=== PATIENT | male | born 1990 | race Caucasian/White ===

== ENCOUNTER 2017-05-13 16:28 | Outpatient (RCR) | payer OTHER, SELFPAY ==
--- NOTE | 2017-05-20 16:23 | HP.PTEVAL_ITS ---
Patient's Visit Information JOSE HARRIS is a 26 year old M referred to Physical Therapy by ADOLFO Burgos NP.MYODE with a diagnosis of Low back pain. Date of Evaluation: 05/13/17 Physical Therapist: Alexis Pulido - Visit Plan Frequency: 2x /Week Duration: 4 Weeks Plan: Start with lumbar extension progress to increase ROM, Add in neutral spine core strengthening. Pt. desires to trial on his own currently and follow up with in 2-3 weeks if not progressing. I gave him extension progress and neutral spine core strengthening for HEP. - Subjective Subjective: Pt. is here today for his initial evaluation with diagnosis of low back pain. Pt. reports having a history of low back pain on and off for 5-6 years. This episode was caused by lifting his nephew up from the ground resulting in intense pain ultimately having trouble walking. Pt. reports feeling much better now and reports no N/T in either LE or lumbar spine. Pt. reports no LE weakness. Pt. is back light exercises and work activities without issues, but does reports some tightness oin his low back with exercises. Pt. denies changes in B/B. Pt. is hopeful to get some exercises for core stability and stretching to reduce risk of back pain returning. Pt. would like to get back to all gym strengthening exercises without limitations. - Pain Lumbar spine Pain Intensity (Out of 10): 0 Pain Intensity Range: 0, 4 - Objective POSTURE: Pt. has normal posture in stance, he has slight anterior tilt of his pelvic bilaterally. Pt. has equal wt. shift in stance and no lateral shifting. PALPATION: Pt. has mild tenderness at R sided lumbar erector spine with slight increase in muscle tenion R to L. pt. has no pain at SI bilaterally, no pain with spring testing, no hypombility noted. NEUROLOGICAL: Pt. has normal sensation to light and sharp touch throughout bilateral LEs. Pt. has 2+ achilles and patellar DTR bilaterally. Pt. is able to rise on heels and toes without issues. ROM: LUMBAR SPINE: flexion nil loss- tightness noted in HS and lumbar spine, ext min loss stiffness noted, SB bilaterally nil loss NE, rotation bilaterally nil loss NE. Pt. has tight HS bilaterally, but otherwise normal ROM without pain. MMT: RLE- ankle 5/5 throughout; knee- 5/5 throughout; hip- flexion 4+/5, abd 4+/5, ext 4+/5, add 5/5. LLE- ankle/knee 5/5 throughout ; hip- flexion 4+/5, abd 4+/5, ext 4+/5, add 5/5. Core- fair. Pt. has difficulty maintaining good TA contraction. GAIT: Normal gait pattern without issues. Normal squat pattern. STAIRS- reciprocal no pain no HR. - Special Tests L/S Slump test left side: Negative L/S Slump test right side: Positive L/S Left Straight Leg Raise: Negative L/S Right Straight Leg Raise: Positive L/S Spinal Stenosis - 2 Stage Treadmill Test: Negative L/S Degenerative Changes - Quadrant Test: Negative L/S Compression Fracture - Supine Test: Negative Lumbar Standing: Flexion - Mechanical Response: No effect Lumbar Standing: Flexion - Symptoms During Testing: No effect Lumbar Standing: Flexion - Symptoms After Testing: No effect Lumbar Standing: Extension - Mechanical Response: No effect Lumbar Standing: Extension - Symptoms During Testing: No effect Lumbar Standing: Extension - Symptoms After Testing: No effect Comments:: stiff with extension Lumbar Standing: Right Side Glides - Mechanical Response: No effect Lumbar Standing: Right Side [facility] - Symptoms During Testing: No effect Lumbar Standing: Right Side [facility] - Symptoms After Testing: No effect Lumbar Standing: Left Side [facility] - Mechanical Response: No effect Lumbar Standing: Left Side [facility] - Symptoms During Testing: No effect Lumbar Standing: Left Side [facility] - Symptoms After Testing: No effect - Goals Goal 1:: Pt. to be I with HEP. Goal Time Frame: 2-4 Weeks Goal 2:: Pt. to have increased core strength and bilateral hip strength by 1/2 grade of all effected musculature to reduce stress applied to lumbar spine. Goal Time Frame: 4-6 Weeks Goal 3:: Pt. have increased lumbar ext ROM without increase in symptoms. Goal Time Frame: 2-4 Weeks Goal 4:: Pt. to resume all work and gym activities without increase in symptoms. Goal Time Frame: 4-6 Weeks - Rehabilitation Potential Physical Therapy Diagnosis: Pt. has signs and symptoms consistent with low back pain, most likely from disc bulging on R side. Pt. has had significant improvement in symptoms over the past few weeks. He does have some pain with slump testing and has stiffness with lumbar ext. Pt. would benefit from lumbar ext progression, progessing to core stability exercises in order to reduce stress on lumbar spine with all functional mobility. Rehabilitation Potential: Excellent - Anticipated Interventions Patient/Client Instruction: Educate patient on: Condition, Plan of Care, Risk Factors, Benefits of Fitness Program For the Purpose of:: To improve health and function, To foster healthy habits, To improve decision making, To facilitate caregiver knowledge, To improve self management, To prevent re-injury, To improve ability to perform tasks related to life management, To improve tolerance to ADL's Therapeutic Exercise to Include: Strength training, Power training, Endurance training, Postural training, Flexibilty training, Passive ROM, Active ROM, Dynamic Lumbar Stabilization, Markie Exercises For the Purpose of:: To decrease pain, To improve nutrient delivery to tissue, To increase oxygenation perfusion, To improve muscle performance and motor function, To improve ability to perform ADL's, To increase tolerance to activity /condition/position, To decrease level of supervision to perform tasks, To decrease soft tissue restriction, To increase flexibility/ROM Manual Therapy Techniques to Include: Petrissage, Trigger point massage, Mobilization, Passive ROM, Soft tissue mobilization For the Purpose of:: To decrease pain, To decrease swelling/inflammation, To increase ROM Thank you for the opportunity to evaluate your patient. For Medicare and Medicare HMO plans, please review the plan of care and approve it. It will need to be FAXED BACK to us at [phone] for Medicare purposes. Please let me know if there are questions or concerns regarding this plan of care. Physician Signature: Date:
--- NOTE | 2017-11-04 17:52 | HP.PTDCNRP_ITS ---
HP - Discharge Summary (1) - Patient Information JOSE HARRIS was seen in my office for initial evaluation on 05/13/17. The following Plan of Care was established for this patient: Initial Frequency: 2x /Week Initial Duration: 4 Weeks - Anticipated Interventions Patient/Client Instruction: Educate patient on: Condition, Plan of Care, Risk Factors, Benefits of Fitness Program For the Purpose of:: To improve health and function, To foster healthy habits, To improve decision making, To facilitate caregiver knowledge, To improve self management, To prevent re-injury, To improve ability to perform tasks related to life management, To improve tolerance to ADL's Therapeutic Exercise to Include: Strength training, Power training, Endurance training, Postural training, Flexibilty training, Passive ROM, Active ROM, Dynamic Lumbar Stabilization, Markie Exercises For the Purpose of:: To decrease pain, To improve nutrient delivery to tissue, To increase oxygenation perfusion, To improve muscle performance and motor function, To improve ability to perform ADL's, To increase tolerance to activity /condition/position, To decrease level of supervision to perform tasks, To decrease soft tissue restriction, To increase flexibility/ROM Manual Therapy Techniques to Include: Petrissage, Trigger point massage, Mobilization, Passive ROM, Soft tissue mobilization For the Purpose of:: To decrease pain, To decrease swelling/inflammation, To increase ROM This patient was last seen in our office 05/13/17. Pertinent comments regarding their Physical therapy will appear below: Pt. was seen for his initial evaluation with diagnosis of low back pain. Pt. was seen for his initial evaluation and was to trial exercises on his own. Pt. was to follow back up with PT if needed. Pt. has not been seenin ~6 months and will be DC from PT at this point in time. At this point I will be discontinuing this patient from physical therapy. I would be happy to see this patient again in the future if found appropriate by the physician. Thank you! Alexis Pulido
== END 2017-05-13 19:00 | disposition home or self-care (01) ==
LOC: PT 16:28
PROVIDERS: Family Provider Internal Medicine; PCP Internal Medicine; Visit Provider Nurse Practitioner Family
DX: M54.9 Dorsalgia, unspecified (principal); G89.29 Other chronic pain
CPT/HCPCS: 97110; 97162

== ENCOUNTER → 2017-06-30 13:40 | Outpatient (CLI) | payer OTHER, SELFPAY ==
--- NOTE | 2017-06-30 13:43 | RAD_ITS ---
STUDY: X-RAY - LUMBOSACRAL SPINE REASON FOR EXAM: Male, 26 years old. Low back pain TECHNIQUE: 7 view(s) of the lumbosacral spine were obtained. COMPARISON: None FINDINGS: Normal lumbar lordosis. There is no substantial scoliosis. There is normal alignment of the vertebrae. There is a unilateral right L5 spondylolysis with no associated spondylolisthesis. There is moderate narrowing of the L3-4 and L4-5 disc spaces. Normal visualized soft tissue structures. RAD/L/S Spine Comp/w Bending Views IMPRESSION: 1. Unilateral right L5 spondylolysis with no associated spondylolisthesis. 2. Moderate narrowing of the L3-4 and L4-5 disc spaces. Electronically Signed: Geronimo Alexander MD at 22:04 EDT , Service support ,
== END ==
PROVIDERS: Family Provider Internal Medicine; PCP Internal Medicine; Visit Provider Orthopaedic Surgery
DX: M47.896 Other spondylosis, lumbar region (principal); M48.061 Spinal stenosis, lumbar region without neurogenic claudication
CPT/HCPCS: 72114

== ENCOUNTER → 2017-07-09 08:19 | Outpatient (CLI) | payer OTHER, SELFPAY ==
[2017-07-09 10:17] LABS: Hemoglobin A1c 5.4 % (4.2-6.3)
[2017-07-09 10:19] LABS: Cholesterol 179 mg/dL (200); High Density Lipoprotein 37 mg/dL; Triglycerides 162 mg/dL; Very Low Density Lipoprotein 32 mg/dL (5-40)
[2017-07-10 11:51] LABS: Vitamin D,25 Hydroxy 44.7 ng/mL (29.95-100.01)
== END ==
PROVIDERS: Family Provider Internal Medicine; PCP Internal Medicine; Visit Provider Internal Medicine
DX: R73.9 Hyperglycemia, unspecified (principal); E78.1 Pure hyperglyceridemia; R53.83 Other fatigue
CPT/HCPCS: 36415; 80061; 82306; 83036

== ENCOUNTER → 2017-10-12 16:21 | Outpatient (CLI) | payer OTHER, SELFPAY ==
[2017-10-12 18:45] LABS: HIV - WCH Non-Reactive (Nonreactive)
[2017-10-12 20:14] LABS: Chlamydia Trachomatis by PCR Negative (Negative); Neisserai gonorrhoeae by PCR Negative (Negative); Probe Check PASS; Sample Adequacy Control PASS; Specimen Processing Control PASS
[2017-10-14 20:12] LABS: HCV Quant. RNA PCR HCV Not Detected IU/mL (.)
[2017-10-16 02:41] LABS: Rapid Plasmin Reagin (RPR) NONREACTIVE (NONREACTIVE)
== END ==
PROVIDERS: Family Provider Internal Medicine; PCP Internal Medicine; Visit Provider Internal Medicine
DX: Z11.3 Encounter for screening for infections with a predominantly sexual mode of transmission (principal)
CPT/HCPCS: 36415; 86592; 86703; 87491; 87522; 87591

== ENCOUNTER → 2019-05-17 08:25 | Outpatient (CLI) | payer OTHER, SELFPAY ==
[2019-05-10 14:11] VITALS: BMI 30.1
[2019-05-17 13:06] LABS: Absolute Lymphocyte Count 2.57 X10^3/uL (0.83-4.51); Absolute Neutrophil Count 2.8 X10^3/uL (2.0-7.7); Basophil# 0.04 X10^3/uL; Basophil% 0.7 % (0-1); Eosinophil# 0.08 X10^3/uL; Eosinophils% 1.3 % (0-5); Hemoglobin 14.5 g/dL (13.0-16.5); Lymphocyte # 2.57 X10^3/ul (4.0); Lymphocyte % 42.1 % (19-41); Mean Corp Hgb Conc 33.7 g/dL (32-36); Mean Corpuscular Hgb 30.4 pg (27.0-32.0); Mean Corpuscular Volume 90.1 fL (80-94); Mean Platelet Vol. 10.9 fl (6.2-12.0); Monocyte# 0.55 X10^3/uL; NRBC Flagged by Analyzer 0 % (0-5); Neutrophil # 2.83 X10^3/uL (2.7-7.7); Neutrophil % 46.4 % (47-70); Platelet Count 303 K/mm3 (150-450); RBC Distribution Width CV 12.1 % (11.6-14.6); RBC Distribution Width SD 39.9 fl (35.1-43.9); Red Blood Count 4.77 M/mm3 (4.6-6.2); White Blood Count 6.1 K/mm3 (4.4-11.0)
[2019-05-17 13:12] LABS: ALB/GLOB Ratio 1.3 RATIO (0.9-2.4); AST(SGOT) 21 U/L (15-37); Alanine Aminotransfer ALT/SGPT 50 U/L (16-61); Albumin, Serum 4.3 g/dL (3.2-5.0); Alkaline Phosphatase 59 U/L (45-117); Anion Gap 7 (5-15); BUN 22 mg/dL (7-18); BUN/Creat Ratio 20.2 RATIO (10-20); Calcium,Total 9.2 mg/dL (8.5-10.1); Chloride 104 mmol/L (98-107); Creatinine, Serum 1.09 mg/dL (0.70-1.30); EST Glomerular Filtration Rate 86 mL/min (>60); Est Glom Filt Rate - Afr Amer 105 mL/min (>60); Globulin 3.2 g/dL (2.2-4.2); Glucose 77 mg/dL (74-106); Potassium 3.7 mmol/L (3.5-5.1); Protein, Total 7.5 g/dL (6.4-8.2); Sodium Level 138 mmol/L (136-145)
== END ==
PROVIDERS: PCP Internal Medicine; Referring Provider Internal Medicine; Visit Provider Internal Medicine
DX: F41.9 Anxiety disorder, unspecified (principal)
CPT/HCPCS: 36415; 80053; 85025

== ENCOUNTER → 2020-02-16 17:49 | Outpatient (CLI) | payer OTHER, SELFPAY ==
[2019-12-13 15:01] VITALS: BMI 32.3
== END ==
PROVIDERS: PCP Internal Medicine; Referring Provider Nurse Practitioner Family; Visit Provider Nurse Practitioner Family
DX: Z20.828 Contact with and (suspected) exposure to other viral communicable diseases (principal); J02.9 Acute pharyngitis, unspecified
CPT/HCPCS: 87635; C9803; U0003

== ENCOUNTER → 2020-06-20 09:20 | Outpatient (CLI) | payer OTHER, SELFPAY ==
[2020-06-20 09:00] VITALS: BMI 30.7
[2020-06-20 12:36] LABS: Absolute Lymphocyte Count 1.69 X10^3/uL (0.83-4.51); Absolute Neutrophil Count 4.9 X10^3/uL (2.0-7.7); Basophil# 0.04 X10^3/uL; Basophil% 0.6 % (0-1); Eosinophil# 0.07 X10^3/uL; Hematocrit 41.8 % (40-54); Hemoglobin 13.9 g/dL (13.0-16.5); Lymphocyte # 1.69 X10^3/ul (4.0); Lymphocyte % 23.4 % (19-41); Mean Corp Hgb Conc 33.3 g/dL (32-36); Mean Corpuscular Hgb 30.7 pg (27.0-32.0); Mean Corpuscular Volume 92.3 fL (80-94); Mean Platelet Vol. 10.7 fl (6.2-12.0); Monocyte# 0.53 X10^3/uL; Monocyte% 7.3 % (0-10); NRBC Flagged by Analyzer 0 % (0-5); Neutrophil # 4.86 X10^3/uL (2.7-7.7); Neutrophil % 67.3 % (47-70); Platelet Count 334 K/mm3 (150-450); RBC Distribution Width CV 12.4 % (11.6-14.6); Red Blood Count 4.53 M/mm3 (4.6-6.2); White Blood Count 7.2 K/mm3 (4.4-11.0)
[2020-06-20 13:15] LABS: ALB/GLOB Ratio 1.4 RATIO (0.9-2.4); AST(SGOT) 19 U/L (15-37); Alanine Aminotransfer ALT/SGPT 40 U/L (16-61); Albumin, Serum 4.3 g/dL (3.2-5.0); Alkaline Phosphatase 58 U/L (45-117); Anion Gap 5 (5-15); BUN 15 mg/dL (7-18); BUN/Creat Ratio 14.9 RATIO (10-20); Calcium,Total 8.8 mg/dL (8.5-10.1); Chloride 107 mmol/L (98-107); Cholesterol 188 mg/dL (200); Creatinine, Serum 1.01 mg/dL (0.70-1.30); EST Glomerular Filtration Rate 94 mL/min (>60); Est Glom Filt Rate - Afr Amer 113 mL/min (>60); Globulin 3.1 g/dL (2.2-4.2); Glucose 97 mg/dL (74-106); High Density Lipoprotein 37 mg/dL; Potassium 4.4 mmol/L (3.5-5.1); Protein, Total 7.4 g/dL (6.4-8.2); Sodium Level 140 mmol/L (136-145); Triglycerides 193 mg/dL; Very Low Density Lipoprotein 39 mg/dL (5-40)
== END ==
PROVIDERS: PCP Internal Medicine; Referring Provider Internal Medicine; Visit Provider Internal Medicine
DX: I10 Essential (primary) hypertension (principal)
CPT/HCPCS: 36415; 80053; 80061; 85025

== ENCOUNTER → 2020-12-11 | Outpatient (CLI) | payer OTHER, SELFPAY | END | disposition home or self-care (01) | PROVIDERS: PCP Internal Medicine; Referring Provider Physician Assistant Surgical; Visit Provider Physician Assistant Surgical | DX: Z20.822 Contact with and (suspected) exposure to COVID-19 (principal) | CPT/HCPCS: 87635; U0005; U0003 ==

== ENCOUNTER 2021-01-06 13:57 | Emergency (ER) | payer OTHER, SELFPAY ==
[2021-01-06 13:58] VITALS: BP 129/68; PULSE 119; RESP 16; TEMP 36.4; O2SAT 97; BMI 28.6
[2021-01-06 15:27] VITALS: BP 141/85; PULSE 103; RESP 17; O2SAT 97
[2021-01-06 15:31] VITALS: BP 141/85; PULSE 105; RESP 17; TEMP 36.8; O2SAT 97
--- NOTE | 2021-01-06 15:35 | EX.ED.DYSGE1 ---
HPI History of Present Illness Chief Complaint: Nausea/Vomiting/Diarrhea Detail of Chief Complaint: Vomiting and diarrhea that started 4 days ago Informant: patient Narrative Narrative: Patient presents to the emergency department complaint of vomiting and diarrhea that started initially 4 days ago. Patient states that it last about 24 hours and that he seemed to get better for the following 2 days but this morning woke up again and had severe diarrhea that was watery. Patient vomited 5 times today. He denies any significant abdominal pain. Patient states that he just got back from [place] 5 days ago. Patient states he had a negative Covid test 5 days ago. He denies any cough or sore throat. He does complain of some body aches. He is not had any fevers. Prior similar symptoms: No PFSH PFSH Medical History (Updated 01/06/21 @ 17:[address] Amanda Sanches DO) Anxiety Chronic back pain Chronic neck and back pain Flu vaccine need Headaches due to old head injury Hemorrhoids High triglycerides Home Medications escitalopram oxalate 10 mg tablet 10 mg PO DAILY #90 tab 09/27/20 [Rx Last Taken Unknown] cyclobenzaprine 10 mg tablet 10 mg PO TID PRN #90 tab 11/05/20 [Rx Last Taken Unknown] ondansetron 4 mg PO Q8H PRN PRN #10 tab 01/06/21 [Rx Last Taken Unknown] Allergy/AdvReac Type Severity Reaction Status Date / Time azithromycin Allergy Mild Rash Verified 01/06/21 13:58 erythromycin base Allergy Unknown Rash Verified 01/06/21 13:58 Family History Mother Diabetes Hypertension CVA (cerebral vascular accident) mini stroke Hyperlipidemia Father Hyperlipidemia Grandfather Cancer pancreatic Surgical History History of back surgery History of placement of ear tubes history of right eardrum reconstruction History of right knee surgery Social History Smoking Status: Never smoker alcohol intake: current alcohol intake frequency: a few times a month substance use type: does not use what type of physical activity do you participate in: running and weight training frequency: 5-6 times per week ROS ROS ED Constitutional Constitutional ED: Reports systems reviewed and no addt'l complaints, except as documented; Denies body ache(s), change in weight or chills Eyes Eyes: Denies acute decrease in peripheral vision, change in vision, double vision or loss of vision ENT ENT ED: Reports none; Denies ear pain, lip swelling, loss taste/smell, neck pain, otalgia or sore throat Cardiovascular Cardiovascular: Reports none; Denies abdominal pain, chest pain with activity, leg edema, lightheadedness, palpitations, rapid heart rate or syncope Respiratory/Chest Respiratory/Chest: Reports none; Denies change in mental status, dry cough, dyspnea, hemoptysis, shortness of breath at rest or shortness of breath with exertion Gastrointestinal Gastrointestinal: Reports none, abdominal pain, diarrhea, nausea and vomiting; Denies change in stool character, hematemesis, hematochezia, melena or rectal bleeding Genitourinary Genitourinary ED: Reports none; Denies abdominal discomfort, anuria, dysuria, genital pain or polyuria Musculoskeletal Musculoskeletal: Reports none and myalgias; Denies arthralgias, back pain, difficulty walking, extremity pain or muscle weakness Integumentary Reports none; Denies abscess or rash Neurologic Neurologic: Reports none; Denies abnormal gait, confusion, focal weakness, frequent falls, headache(s), loss of vision, numbness, paresthesias, radicular pain, vertigo or weakness Psychiatric Psychiatric: Reports systems reviewed and no addt'l complaints, except as documented and none; Denies behavioral changes, confusion, difficulty concentrating, hallucinations, suicidal ideation, tactile hallucinations or visual hallucinations Endocrine Endocrinology: Denies none, cold intolerance, excessive sweating, fatigue or heat intolerance Hematologic/Lymphatic Hematologic/Lymphatic: Reports none; Denies anemia, easy bleeding or easy bruising Allergic/Immunologic Allergic/Immunologic ED: Denies as per HPI, none, lip swelling, mouth swelling, throat swelling, tongue swelling or hives EXAM Physical Exam Const Vital Signs: 01/06/21 13:58 01/06/21 15:27 01/06/21 15:31 Temperature 97.5 F L 98.2 F Temperature Source Temporal Oral Pulse Rate 119 H 103 H 105 H Respiratory Rate 16 17 17 Blood Pressure 129/68 H 141/85 H 141/85 H Blood Pressure Mean 88 103 103 Pulse Ox 97 97 97 Oxygen Delivery Method Room Air Room Air Room Air Positive well nourished and well developed General Appearance ED: well developed and NAD HEENT Reports TM's clear and moist mucous membranes normocephalic and atraumatic; Negative for trauma or tenderness Tympanic Membrane ED: Yes TM's clear Eyes PERRL and EOMs intact bilaterally General Eye ED: Negative for pale conjunctiva or scleral icterus Neck no lymphadenopathy, supple and no JVD General: Negative for tenderness Chest Wall inspection of chest normal and palpation of chest normal Chest: Negative for tenderness Resp normal respiratory effort and clear to auscultation bilaterally Effort and Inspection: Negative for respiratory distress or pain with movement Auscultation: Negative for rhonchi, wheezes or diminished lung sounds Cardio regular rate, regular rhythm, S1 normal heart sound, S2 normal heart sound and no murmurs Peripheral Pulses: pulses 2+ throughout GI normal to inspection, nondistended, normoactive bowel sounds, soft to palpation, non-tender, non-distended and no masses Back/Spine no CVA tenderness and no thoracic nor lumbar tenderness Extremity normal to inspection General Extremety ED: Negative for edema General Extremity: Negative for edema Neuro oriented x3, CN's II-XII intact bilaterally, no sensory deficits noted and gait normal Sensorium / Orientation: awake, alert, oriented to person, oriented to place and oriented to time Motor Exam: strength 5/5 throughout and strength abnormal Psych mental status grossly normal Skin no rashes or lesions noted and no wounds MDM MDM MDM Narrative Medical decision making narrative: IV line established on arrival. Patient was given a liter normal same fluid bolus. His lab work-up was unremarkable. I did send stool for enteric pathogens. As well as ova and parasites. Patient advised to follow-up with his primary care physician within next 3 to 5 days. He is given a prescription for Zofran. I suspect likely a viral gastroenteritis. Given his recent travel to [place] however I felt it was reasonable to send off stool studies. Results of stool studies may take several days. Patient advised to return if worsening pain, fever, vomiting, bloody stools, or condition worsen anyway. Lab Data Attestation: I reviewed the patient's lab results. Labs: Laboratory Results - last 24 hr 01/06/21 01/06/21 15:20 15:20 WBC 10.4 RBC 5.00 Hgb 15.8 Hct 44.8 MCV 89.6 MCH 31.6 MCHC 35.3 RDW Std Deviation 40.5 RDW Coeff of Renny 12.5 Plt Count 276 MPV 10.3 Immature Gran % (Auto) 0.300 Neut % (Auto) 92.3 H Lymph % (Auto) 2.4 L Faulk % (Auto) 4.7 Eos % (Auto) 0.2 Baso % (Auto) 0.1 Absolute Neuts (auto) 9.6 H Absolute Lymphs (auto) 0.25 L Nucleated RBC % 0 Differential Comment SEE COMMENT Platelet Estimate ADEQUATE RBC Morphology N CHROM Anisocytosis RARE Sodium 141 Potassium 4.0 Chloride 106 Carbon Dioxide 26.0 Anion Gap 9 BUN 17 Creatinine 1.08 Estim Creat Clear Calc 101.83 Est GFR (MDRD) Af Amer 104 Est GFR (MDRD) Non-Af 86 BUN/Creatinine Ratio 15.7 Glucose 114 H Calcium 9.0 Total Bilirubin 0.70 AST 15 ALT 36 Alkaline Phosphatase 71 Total Protein 8.4 H Albumin 4.3 Globulin 4.1 Albumin/Globulin Ratio 1.0 Lipase 69 L Discharge Plan Triage Chief Complaint: Nausea/Vomiting/Diarrhea ED Provider: Amanda Sanches Dx/Rx/DC Orders Clinical Impression: Viral gastroenteritis Instructions: ED Diarrhea, Viral (Adult) Prescriptions: New ondansetron [ondansetron] 4 MG tablet 4 mg PO Q8H PRN PRN (Reason: Nausea) Qty: 10 RF: 0 No Action escitalopram oxalate 10 mg tablet 10 mg PO DAILY Qty: 90 RF: 0 cyclobenzaprine 10 mg tablet 10 mg PO TID PRN (Reason: muscle spasm) Qty: 90 RF: 3 Primary Care Provider: Laith Aguirre Referrals: Laith Aguirre MD [Primary Care Provider] - 3-5 Days Disposition Disposition: Home, Self Care
[2021-01-06] MEDS: Ondansetron 4 MG/2 ML Vial IV (15:48)
[2021-01-06] MEDS: 0.9% Normal Saline 1,000 ML 1000 ML IV (15:48)
[2021-01-06 16:05] LABS: Absolute Lymphocyte Count 0.25 X10^3/uL (0.83-4.51); Absolute Neutrophil Count 9.6 X10^3/uL (2.0-7.7); Basophil# 0.01 X10^3/uL; Basophil% 0.1 % (0-1); Eosinophil# 0.02 X10^3/uL; Eosinophils% 0.2 % (0-5); Hematocrit 44.8 % (40-54); Hemoglobin 15.8 g/dL (13.0-16.5); Lymphocyte # 0.25 X10^3/ul (0.83-4.51); Lymphocyte % 2.4 % (19-41); Mean Corp Hgb Conc 35.3 g/dL (32-36); Mean Corpuscular Hgb 31.6 pg (27.0-32.0); Mean Corpuscular Volume 89.6 fL (80-94); Mean Platelet Vol. 10.3 fl (6.2-12.0); Monocyte# 0.49 X10^3/uL; Monocyte% 4.7 % (0-10); NRBC Flagged by Analyzer 0 % (0-5); Neutrophil % 92.3 % (47-70); POSITIVE DIFFERENTIAL YES; Platelet Count 276 K/mm3 (150-450); RBC Distribution Width CV 12.5 % (11.6-14.6); RBC Distribution Width SD 40.5 fl (35.1-43.9); White Blood Count 10.4 K/mm3 (4.4-11.0)
[2021-01-06 16:13] LABS: AST(SGOT) 15 U/L (15-37); Alanine Aminotransfer ALT/SGPT 36 U/L (16-61); Albumin, Serum 4.3 g/dL (3.2-5.0); Alkaline Phosphatase 71 U/L (45-117); Anion Gap 9 (5-15); BUN 17 mg/dL (7-18); BUN/Creat Ratio 15.7 RATIO (10-20); Chloride 106 mmol/L (98-107); Creatinine, Serum 1.08 mg/dL (0.70-1.30); EST Glomerular Filtration Rate 86 mL/min (>60); Est Glom Filt Rate - Afr Amer 104 mL/min (>60); Estimated Creatinine Clearance 101.83 ml/min; Globulin 4.1 g/dL (2.2-4.2); Glucose 114 mg/dL (74-106); Lipase 69 U/L (73-393); Protein, Total 8.4 g/dL (6.4-8.2); Sodium Level 141 mmol/L (136-145)
[2021-01-06 16:19] LABS: Differential Indicated SCAN CRITERIA MET
[2021-01-06 16:54] LABS: Anisocytosis RARE; Platelet Estimate ADEQUATE (ADEQ); Red Cell Morphology N CHROM NORMAL (NORM C&C)
[2021-01-06 17:45] VITALS: BP 138/78; PULSE 98; RESP 12
== END 2021-01-06 17:46 | disposition home or self-care (01) ==
PROVIDERS: Emergency Provider Emergency Medicine; PCP Internal Medicine
DX: A08.4 Viral intestinal infection, unspecified (principal); Z79.899 Other long term (current) drug therapy
CPT/HCPCS: 80053; 83690; 85025; 87426; 87506; 96374; 99283; J2405

== ENCOUNTER → 2021-01-17 | Outpatient (CLI) | payer OTHER, SELFPAY | END | disposition home or self-care (01) | LOC: LABSPEC 09:11 | PROVIDERS: PCP Internal Medicine; Referring Provider Physician Assistant; Visit Provider Physician Assistant | DX: Z20.822 Contact with and (suspected) exposure to COVID-19 (principal) | CPT/HCPCS: 87635; U0005; U0003 ==

== ENCOUNTER → 2021-02-26 | Outpatient (CLI) | payer OTHER, SELFPAY | END | disposition home or self-care (01) | LOC: LABSPEC 10:12 | PROVIDERS: PCP Internal Medicine; Referring Provider Physician Assistant Surgical; Visit Provider Physician Assistant Surgical | DX: U07.1 COVID-19 (principal) | CPT/HCPCS: 87635; U0005; U0003 ==

== ENCOUNTER → 2022-07-23 | Outpatient (CLI) | payer OTHER, SELFPAY ==
[2022-07-23 12:44] LABS: Absolute Lymphocyte Count 1.77 X10^3/uL (0.83-4.51); Absolute Neutrophil Count 3.1 X10^3/uL (2.0-7.7); Basophil# 0.03 X10^3/uL; Basophil% 0.6 % (0-1); Eosinophil# 0.05 X10^3/uL; Eosinophils% 0.9 % (0-5); Hematocrit 43.7 % (40-54); Hemoglobin 14.8 g/dL (13.0-16.5); Lymphocyte # 1.77 X10^3/ul (0.83-4.51); Lymphocyte % 32.8 % (19-41); Mean Corp Hgb Conc 33.9 g/dL (32-36); Mean Corpuscular Hgb 31.2 pg (27.0-32.0); Mean Corpuscular Volume 92.2 fL (80-94); Mean Platelet Vol. 10.9 fl (6.2-12.0); Monocyte# 0.47 X10^3/uL; Monocyte% 8.7 % (0-10); NRBC Flagged by Analyzer 0 % (0-5); Neutrophil # 3.06 X10^3/uL (2.7-7.7); Neutrophil % 56.8 % (47-70); Platelet Count 294 K/mm3 (150-450); RBC Distribution Width CV 12.2 % (11.6-14.6); RBC Distribution Width SD 41.5 fl (35.1-43.9); Red Blood Count 4.74 M/mm3 (4.6-6.2); White Blood Count 5.4 K/mm3 (4.4-11.0)
[2022-07-23 13:42] LABS: ALB/GLOB Ratio 1.4 RATIO (0.9-2.4); AST(SGOT) 20 U/L (15-37); Alanine Aminotransfer ALT/SGPT 33 U/L (16-61); Albumin, Serum 4.4 g/dL (3.2-5.0); Alkaline Phosphatase 57 U/L (45-117); Anion Gap 5 (5-15); BUN 11 mg/dL (7-18); BUN/Creat Ratio 11.4 RATIO (10-20); Calcium,Total 9.2 mg/dL (8.5-10.1); Chloride 105 mmol/L (98-107); Cholesterol 182 mg/dL (200); Creatinine, Serum 0.96 mg/dL (0.70-1.30); EST Glomerular Filtration Rate 97 mL/min (>60); Est Glom Filt Rate - Afr Amer 118 mL/min (>60); Globulin 3.1 g/dL (2.2-4.2); Glucose 87 mg/dL (74-106); High Density Lipoprotein 46 mg/dL; Potassium 4.2 mmol/L (3.5-5.1); Protein, Total 7.5 g/dL (6.4-8.2); Sodium Level 135 mmol/L (136-145); Thyroid Stim Hormone (TSH) 1.19 uIU/mL (0.358-3.74); Triglycerides 72 mg/dL; Very Low Density Lipoprotein 14 mg/dL (5-40)
== END | disposition home or self-care (01) ==
LOC: BIMLAB 10:23
PROVIDERS: PCP Internal Medicine; Referring Provider Nurse Practitioner Family; Visit Provider Nurse Practitioner Family
DX: Z00.00 Encounter for general adult medical examination without abnormal findings (principal); F41.9 Anxiety disorder, unspecified
CPT/HCPCS: 36415; 80053; 80061; 84443; 85025

== ENCOUNTER → 2023-11-30 | Outpatient (CLI) | payer OTHER, SELFPAY ==
[2023-11-30 15:13] LABS: Absolute Lymphocyte Count 2.26 X10^3/uL (0.83-4.51); Absolute Neutrophil Count 3.7 X10^3/uL (2.0-7.7); Basophil# 0.04 X10^3/uL; Basophil% 0.6 % (0-1); Eosinophil# 0.11 X10^3/uL; Eosinophils% 1.6 % (0-5); Hemoglobin 14.1 g/dL (13.0-16.5); Lymphocyte # 2.26 X10^3/ul (0.83-4.51); Lymphocyte % 33.3 % (19-41); Mean Corp Hgb Conc 35.3 g/dL (32-36); Mean Corpuscular Hgb 31.4 pg (27.0-32.0); Mean Corpuscular Volume 89.1 fL (80-94); Mean Platelet Vol. 10.9 fl (6.2-12.0); Monocyte# 0.63 X10^3/uL; Monocyte% 9.3 % (0-10); NRBC Flagged by Analyzer 0 % (0-5); Neutrophil # 3.72 X10^3/uL (2.7-7.7); Neutrophil % 54.9 % (47-70); Platelet Count 293 K/mm3 (150-450); RBC Distribution Width CV 11.9 % (11.6-14.6); RBC Distribution Width SD 38.4 fl (35.1-43.9); Red Blood Count 4.49 M/mm3 (4.6-6.2); White Blood Count 6.8 K/mm3 (4.4-11.0)
[2023-11-30 15:54] LABS: ALB/GLOB Ratio 1.3 RATIO (0.9-2.4); AST(SGOT) 25 U/L (15-37); Alanine Aminotransfer ALT/SGPT 44 U/L (16-61); Albumin, Serum 4.2 g/dL (3.2-5.0); Alkaline Phosphatase 60 U/L (45-117); Anion Gap 7 (5-15); BUN 16 mg/dL (7-18); BUN/Creat Ratio 15.7 RATIO (10-20); Calcium,Total 9.2 mg/dL (8.5-10.1); Chloride 106 mmol/L (98-107); Creatinine, Serum 1.02 mg/dL (0.70-1.30); EST Glomerular Filtration Rate 90 mL/min (>60); Est Glom Filt Rate - Afr Amer 109 mL/min (>60); Globulin 3.3 g/dL (2.2-4.2); Glucose 87 mg/dL (74-106); Potassium 4.5 mmol/L (3.5-5.1); Protein, Total 7.5 g/dL (6.4-8.2); Sodium Level 139 mmol/L (136-145)
== END | disposition home or self-care (01) ==
LOC: BIMLAB 11:58
PROVIDERS: PCP Internal Medicine; Referring Provider Internal Medicine; Visit Provider Internal Medicine
DX: Z00.00 Encounter for general adult medical examination without abnormal findings (principal)
CPT/HCPCS: 36415; 80053; 85025

== ENCOUNTER 2024-01-12 15:30 | Outpatient (RCR) | payer OTHER, SELFPAY ==
--- NOTE | 2023-12-17 18:49 | HP.PTEVAL_ITS ---
Patient's Visit Information Visit Information Visit Information: JOSE HARRIS is a 33 year old M referred to Physical Therapy by Dr. Laith Aguirre MD with a diagnosis of LOW BACK PAIN ,CHRONIC PAIN. Date of Evaluation: 12/17/23 Physical Therapist: Aleksander Sheldon, PT, Cert MDT, OCS Visit Plan Frequency: 2x /Week Duration: 4 Weeks Plan: PT INTERVENTIONS MAKE SURE CONT WITH JONATHAN EX'S WITH EXTENSION ,PROGRESS TO DLS ,POSTURAL EX'S AND LE FLEXABILITY Subjective Subjective: This 33 y/o male presents to physical therapy with chronic low back pain. Patient has had back pain 2013. Patient pain has been intermittent overall the . years. A least 2-3 times per year. Pain would return by lifting or just lifting something light . Patient had MRI showed protruding disc 2018. Most recently 6 months pain is more chronic . Pain located symmetrical,. Aggravating factors bending,lifting ,yard work . Alleviating moving active and walking. Coughing/sneezing Bowel/bladder -. Denies paresthesia/tingling -. Patient sleeping okay. Patient is active working out. Patient sees chiropractor 1 x month Patient pain affects QOL and function . Patient goals to decrease pain. 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 Bilateral Back: Pain Intensity (Out of 10): 2 Pain Intensity Range: 10 Objective Objective: POSTURE: WFL GAIT: reciprocal pattern NEURO: denies paresthesia/tingling ,reflexes L3-4,L4-5,L5-S1 2/3 FLEXABILITY: hamstrings min tight LUMBAR ROM: flexion WFL ,extension min loss ,side glides min loss MMT:quads /hamstrings 4/5 ,hip flexion 4/5 ,ankle 5/5 Special Tests L/S Slump test left side: Negative L/S Slump test right side: Positive L/S Left Straight Leg Raise: Negative L/S Right Straight Leg Raise: Negative Lumbar Standing: Flexion - Mechanical Response: No effect Lumbar Standing: Flexion - Symptoms During Testing: No effect Lumbar Standing: Flexion - Symptoms After Testing: No effect Lumbar Standing: Extension - Mechanical Response: No effect Lumbar Standing: Extension - Symptoms During Testing: Increases Lumbar Standing: Extension - Symptoms After Testing: No worse Lumbar Standing: Right Side Glides - Mechanical Response: No effect Lumbar Standing: Right Side [place] - Symptoms During Testing: No effect Lumbar Standing: Right Side [place] - Symptoms After Testing: No effect Lumbar Standing: Left Side [place] - Mechanical Response: No effect Lumbar Standing: Left Side [place] - Symptoms During Testing: No effect Lumbar Standing: Left Side [place] - Symptoms After Testing: No effect Lumbar Lying: Flexion - Mechanical Response: No effect Lumbar Lying: Flexion - Symptoms During Testing: No effect Lumbar Lying: Flexion - Symptoms After Testing: No effect Lumbar Lying: Extension - Mechanical Response: No effect Lumbar Lying: Extension - Symptoms During Testing: No effect Lumbar Lying: Extension - Symptoms After Testing: No effect Comments:: tightness Balance/Special Test Scores Oswestry Low Back Score: 14 Goals Goal 1:: I with HEP for back Goal Time Frame: 4-6 Weeks Goal 2:: Patient to improve lumbar ROM for function of recovery to prevent further injury Goal Time Frame: 4-6 Weeks Goal 3:: Patient to improve back oswestry score by 5 points to improve QOL Goal Time Frame: 4-6 Weeks Goal 4:: Patient to demonstrate 70% improvement with less episode of pain Goal Time Frame: 4-6 Weeks Rehabilitation Potential Physical Therapy Diagnosis: This patient has protruding disc MRI 2018 with symptoms get worse bending/lifting ,sitting ,better with walking ,usually gets pain every 1-2 per year thus benEfit from skilled PT Rehabilitation Potential: Good Anticipated Interventions Patient/Client Instruction: Educate patient on: Condition and Plan of Care For the Purpose of:: To decrease pain, To increase ROM, To improve muscle performance and motor function, To improve ability to perform ADL's, To increase tolerance to activity/condition/position, To improve performance and independence with ADL's, To improve ability of physical actions for home/co mmunity/work/leisure, To improve health of tissue, To decrease soft tissue restriction, To increase flexibility/ROM and To improve tolerance to ADL's Therapeutic Exercise to Include: Strength training, Endurance training, Postural training, Flexibilty training and Dynamic Lumbar Stabilization For the Purpose of:: To decrease pain, To increase ROM, To improve muscle performance and motor function, To improve ability to perform ADL's, To increase tolerance to activity/condition/position, To improve ability of physical actions for home/community/work/leisure, To improve health of tissue, To decrease soft tissue restriction and To increase flexibility/ROM Text: Thank you for the opportunity to evaluate your patient. For Medicare and Medicare HMO plans, please review the plan of care and approve it. It will need to be FAXED BACK to us at [phone] for Medicare purposes. For Medicare only, by signing this I certify the plan of care. Please let me know if there are questions or concerns regarding this plan of care. Physician Signature: Date:
--- NOTE | 2024-01-12 16:04 | HP.PTDCSUM ---
Discharge Summary D/C summary: It has been my pleasure to treat JOSE HARRIS referred by Dr. Laith Aguirre MD, with the diagnosis of LOW BACK PAIN ,CHRONIC PAIN for a total of 7 visit(s). Discharge Date: 01/12/24 Please see the following information for a summary of their discharge status. Subjective Subjective: Doing well progress well. Pain Bilateral Back: Pain Intensity (Out of 10): 0 Overall Improvement % Improvement: 90 Objective Objective/Function: POSTURE: WFL GAIT: reciprocal pattern NEURO: denies paresthesia/tingling ,reflexes L3-4,L4-5,L5-S1 2/3 FLEXABILITY: hamstrings min tight LUMBAR ROM: flexion WFL ,extension min loss ,side glides min loss MMT:quads /hamstrings 4/5 ,hip flexion 4/5 ,ankle 5/5 Goals Goal 1:: I with HEP for back Goal Progress: Goal Met Goal 2:: Patient to improve lumbar ROM for function of recovery to prevent further injury Goal Progress: Goal Met Goal 3:: Patient to improve back oswestry score by 5 points to improve QOL Goal Progress: Goal Met Goal 4:: Patient to demonstrate 70% improvement with less episode of pain Goal Progress: Goal Met Plan Plan: D/C D/C Information Discharge Comments: HEP d/c sentence: If there are questions or concerns regarding this patient's physical therapy, please feel free to call me at [phone]. Thank you for the referral of this patient. Sincerely, Aleksander Sheldon, PT, Cert MDT, OCS Balance/Gait/Functional tests Balance/Special Test Scores Oswestry Low Back Score: 0 Improvement % Improvement: 90
== END 2024-01-12 19:00 | disposition home or self-care (01) ==
LOC: PT 15:30
PROVIDERS: PCP Internal Medicine; Referring Provider Internal Medicine; Visit Provider Internal Medicine
DX: M54.50 Low back pain, unspecified (principal); G89.29 Other chronic pain
CPT/HCPCS: 97110; 97162; 97530

== ENCOUNTER → 2024-09-28 | Outpatient (CLI) | payer OTHER, SELFPAY ==
--- NOTE | 2024-09-28 06:51 | MRI_ITS ---
PROCEDURE: BRAIN W/WO CONTRAST 09/28/2024 REASON FOR EXAM: HEADACHES TECHNIQUE: BRAIN W/WO CONTRAST Multiplanar and multisequence images were obtained. CONTRAST: Clariscan VOLUME: 19 mL IV. COMPARISON: None. FINDINGS: Brain: Normal signal intensities. No orbital pathology is seen. Internal auditory canals appear symmetric and within the normal range. Diffusion: Diffusion-weighted images demonstrate no area of restricted diffusion. Ventricles: Normal. Major Intracranial Vessels: Unremarkable Sinuses: Mild mucosal thickening is seen of the left frontal, bilateral ethmoid, and right maxillary sinuses no air-fluid level is noted. The remaining paranasal sinuses appear clear. Mastoids: Partial opacification of the right mastoid air cells is seen, of uncertain chronicity; recommend clinical and historical correlation. Left mastoid air cells appear clear MRI/Brain W/WO Contrast IMPRESSION: 1. Chronic paranasal sinusitis. 2. Partial opacification of the right mastoid air cells is seen, of uncertain c hronicity; recommend clinical and historical correlation. 3. No intracranial abnormality is seen. Reading Location: [place] [id number]
--- OUTSIDE RECORDS SUMMARY | 2024-09-28 07:09 | XMS RPT_ITS | CCD ---
Author Organization [facility] Care Team Providers Care Sales Support Assistant Name Role Phone JHONY LONDONO Ela Unavailable Unavailable ADRIANNeyda JHONY Mahmood Unavailable Unavailable Ronnie Kwon MD Unavailable Dr. Laith Aguirre Primary Care Provider [phone] Dr. Laith Aguirre Referring Provider [phone] Emmanuel OPERATIONS MGR, OPERATIONS MGR-C Herrera Attending Provider Amie Aldana Primary Care Provider Unavailabl e AMIE ALDANA Primary Care Unavailable NISHANT LUKE Attending Unavailable TESTEDWIN HOGAN Referring Unavailable NISHANT LUKE Attending Unavailable TESTRAEDWIN PRATHER Referring Unavailable AMIE ALDANA Primary Care Unavailable TESTEDWIN HOGAN Attending Unavailable WESLEYAMIE Primary Care Unavailable Timothy BENITEZ, Dr. Ozuna Primary Care Provider Dr. Laith Aguirre MD Referring Provider [phone] Edwin Matthews Attending Provider Edwin Matthews Attending Unavailable Edwin Matthews Referring Unavailable Oleghe, Efewongbe Primary Care Unavailable Edwin Matthews Attending Unavailable Oleghe, Efewongbe Referring Unavailable Oleghe, Efewongbe Primary Care Unavailable Edwin Matthews Attending Unavailable Oleghe, Efewongbe Referring Unavailable Oleghe, Efewongbe Primary Care Unavailable Oleghe, Efewongbe Primary Care Unavailable Oleghe, Efewongbe Attending Unavailable Oleghe, Efewongbe Referring Unavailable Oleghe, Efewongbe Primary Care Unavailable Oleghe, Efewongbe Attending Unavailable Oleghe, Efewongbe Referring Unavailable Oleghe, Efewongbe Primary Care Unavailable Oleghe, Efewongbe Attending Unavailable Oleghe, Efewongbe Referring Unavailable Allergies Allergy Classification Reported Allergen(s) Allergy Type Date of Onset Reaction(s) Facility (9 sources) azithromycin; Translations: [AZITHROMYCIN] Drug Allergy 07-29-2013 [facility] Repository Comment on above: childhood (2 sources) Erythromycin Drug Allergy 07-23-2022 Rash [facility] (1 source) Erythromycin Drug Allergy 08-19-2024 [facility] Repository Medications Current Medications Medication Drug Class(es) Dates Sig (Normalized) Sig (Original) cyclobenzaprine hydrochloride 10 mg oral tablet (19 sources) Muscle Relaxant Start: 11-30-2023 End: 08-03-2024 take 1 tablet by mouth once daily as needed for muscle spasms Cyclobenzaprine 10 mg tablet Active 10 mg PO DAILY as needed for muscle spasm August 03, 2024 12:59pm Start: 05-10-2019 End: 07-21-2023 take 1 tablet by mouth three times daily as needed for muscle spasms Cyclobenzaprine 10 mg tablet Discontinued 10 mg PO THREE TIMES A DAY as needed for muscle spasm November 18, 2021 12:39pm July 23, 2022 9:47am Start: 04-14-2017 End: 07-08-2017 take 1 tablet by mouth three times daily Cyclobenzaprine 10 MG tablet Discontinued 10 mg PO THREE TIMES A DAY April 14, 2017 1:00am July 08, 2017 4:23pm diclofenac sodium 0.01 mg/mg topical gel (3 sources) Nonsteroidal Anti-inflammatory Drug Start: 01-02-2014 Diclofenac Sodium (VOLTAREN) 1 % gel Apply to affected area up to twice a day 100 g 0 01/02/2014 Active escitalopram 10 mg oral tablet (20 sources) Serotonin Reuptake Inhibitor Start: 03-31-2017 End: 07-18-2024 take 1 tablet by mouth once daily Escitalopram Oxalate 10 mg tablet Active 10 mg PO DAILY July 18, 2024 10:00am meloxicam 7.5 mg oral tablet (3 sources) Nonsteroidal Anti-inflammatory Drug Start: 07-21-2023 End: 08-19-2024 take 1 tablet by mouth once daily as needed Meloxicam 7.5 mg tablet Active 7.5 mg PO DAILY as needed August 19, 2024 11:09am methocarbamol 750 mg oral tablet (2 sources) Muscle Relaxant Start: 07-21-2023 End: 11-16-2023 take 1 tablet by mouth at bedtime as needed for muscle spasms Methocarbamol 750 mg tablet Active 750 mg PO AT BEDTIME as needed for muscle spasm November 16, 2023 9:19am traZODone hydrochloride 50 mg oral tablet (8 sources) Serotonin Reuptake Inhibitor Start: 07-23-2022 End: 09-04-2023 take 1 tablet by mouth at bedtime as needed Trazodone 50 mg tablet Active 50 mg PO AT BEDTIME as needed for insomnia September 04, 2023 3:06pm trazodone HCl (T RAZODONE ORAL) Take by mouth. Active Completed/Discontinued Medications Medication Drug Class(es) Dates Sig (Normalized) Sig (Original) amoxicillin 875 mg / clavulanate 125 mg oral tablet (3 sources) Penicillin-class Antibacterial Start: 05-14-2023 End: 05-21-2023 Amoxicillin-Pot Clavulanate 875-125 mg tablet Discontinued 1 {tbl} PO Q12H 14 7 May 14, 2023 1:00am May 20, 2023 1:00am May 21, 2023 1:04am Start: 07-15-2018 End: 08-13-2018 Amoxicillin-Pot Clavulanate 875-125 mg tablet Discontinued 1 {tbl} PO Q12H July 15, 2018 12:00am August 13, 2018 8:28am Start: 07-15-2018 End: 08-13-2018 take 1 tablet by mouth every twelve hours Amoxicillin-Pot Clavulanate Discontinued 1 TABLET PO Q12H July 15, 2018 12:00am August 13, 2018 8:28am doxycycline monohydrate 100 mg oral capsule (1 source) Tetracycline-class Drug Start: 07-30-2022 End: 03-18-2023 take 2 capsules by mouth once daily Doxycycline Monohydrate 100 mg capsule Discontinued 200 mg PO DAILY July 30, 2022 12:00am March 18, 2023 10:00am fluconazole 200 mg oral tablet (2 sources) Azole Antifungal Start: 10-12-2017 End: 07-15-2018 take 1 tablet by mouth once daily Fluconazole 200 mg tablet Discontinued 200 mg PO daily October 12, 2017 12:00am July 15, 2018 2:13pm Once fluticasone propionate 0.05 mg/actuat metered dose nasal spray (1 source) Corticosteroid Start: 05-14-2023 End: 07-16-2023 take 50 ug nasal route twice daily Fluticasone Propionate (Flonase Allergy Relief) 50 mcg/actuation spray,suspension Discontinued 1 NMA INTRANASAL TWICE A DAY May 14, 2023 1:00am July 16, 2023 3:12pm administer into each nostril naproxen sodium 220 mg oral tablet (3 sources) Nonsteroidal Anti-inflammatory Drug Start: 03-24-2018 ALEVE 220 MG TABS 1-2 tablets twice a day as needed NAPROXEN SODIUM [id number] Ronnie Kwon MD Start: 04-13-2017 End: 07-08-2017 take 1 tablet by mouth every eight hours as needed for pain Naproxen Sodium 220 MG tablet Discontinued 220 mg PO EVERY 8 HOURS NEEDED as needed for Pain April 13, 2017 1:00am July 08, 2017 4:24pm ondansetron 4 mg disintegrating oral tablet (2 sources) Serotonin-3 Receptor Antagonist Start: 01-06-2021 End: 06-19-2021 take 1 tablet by mouth every eight hours as needed for nausea Ondansetron 4 MG tablet Discontinued 4 mg PO EVERY 8 HOURS NEEDED as needed for Nausea January 06, 2021 12:00am June 19, 2021 9:08am predniSONE 10 mg oral tablet (7 sources) Start: 07-16-2023 End: 07-21-2023 Prednisone 10 mg tablets,dose pack Discontinued 0 PO per package directions July 16, 2023 12:00am July 21, 2023 8:02am PO PER PKG DIR Start: 01-24-2022 End: 07-23-2022 Prednisone 10 mg tablet Disc ontinued 0 PO .COMPLEX January 24, 2022 12:00am July 23, 2022 9:35am take tablets orally as followed; 6 tabs x 2 days, 5 tabs x 2 days, 4 tabs x 2 days, 3 x 2, 2 x 2, 1 x 2 Start: 01-24-2022 End: 07-23-2022 Prednisone Discontinued 0 PO .COMPLEX January 24, 2022 12:00am Sarah 19th, 2023 9:35am take tablets orally as followed; 6 tabs x 2 days, 5 tabs x 2 days, 4 tabs x 2 days, 3 x 2, 2 x 2, 1 x 2 Start: 11-30-2018 End: 05-10-2019 Prednisone 10 mg tablet Disc ontinued 0 PO daily November 30, 2018 12:00am May 10, 2019 3:09pm 4 tabs for 3 days, then 3 tabs for 3 days, then 2 tabs for 3 days, then 1 tab for 3 days PO QDAY; administer with food or milk Start: 04-14-2017 End: 05-05-2017 take 4 tablets by mouth once daily in the morning Prednisone 10 MG tablet Discontinued 10 mg PO DAILY April 14, 2017 1:00am May 05, 2017 5:53pm 40 mg daily @ 8:00 AM for 2 days 30 mg daily @ 8:00 AM for 2 days 20 mg daily @ 8:00 AM for 2 days 10 mg daily @ 8:00 AM for 2 days Start: 04-14-2017 End: 05-05-2017 take 40 mg by mouth once daily in the morning Prednisone Discontinued 10 MG PO DAILY April 14, 2017 1:00am May 05, 2017 5:53pm 40 mg daily @ 8:00 AM for 2 days 30 mg daily @ 8:00 AM for 2 days 20 mg daily @ 8:00 AM for 2 days 10 mg daily @ 8:00 AM for 2 days tiZANidine 4 mg oral tablet (2 sources) Central alpha-2 Adrenergic Agonist Start: 11-30-2018 End: 05-10-2019 take 1 tablet by mouth every eight hours as needed Tizanidine 4 mg tablet Discontinued 4 mg PO Q8H as needed for muscle spasticity November 30, 2018 12:00am May 10, 2019 3:09pm traMADol hydrochloride 50 mg oral tablet (2 sources) Opioid Agonist Start: 11-30-2018 End: 05-10-2019 take 1 tablet by mouth every twelve hours as needed for pain Tramadol 50 mg tablet Discontinued 50 mg PO Q12H as needed for pain November 30, 2018 12:00am May 10, 2019 3:09pm Problems Active Problems Problem Classification Problem Date Documented Date Episodic/Chronic Allergic reactions (2 sources) Contact dermatitis due to poison dee; Translations: [Allergic contact dermatitis due to plants, except food] 01-24-2022 Episodic Anxiety disorders (9 sources) Generalized anxiety disorder; Translations: [Anxiety] Onset: 09-29-2016 03-31-2017 Chronic Disorders of lipid metabolism (2 sources) Hypertriglyceridemia; Translations: [Pure hyperglyceridemia] 03-31-2017 Chronic Essential hypertension (2 sources) Hypertensive disorder; Translations: [Essential (primary) hypertension] 08-13-2018 Chronic Fracture of upper limb (1 source) Closed fracture of distal end of radius; Translations: [Other intraarticular fracture of lower end of left radius, initial encounter for closed fracture] Onset: 03-24-2018 03-24-2018 Episodic Headache; including migraine (3 sources) Headache; Translations: [Post-traumatic headache, unspecified, not intractable] Onset: 09-26-2024 03-31-2017 Episodic Hemorrhoids (2 sources) Hemorrhoids; Translations: [Unspecified hemorrhoids] 12-11-2020 Episodic Immunizations and screening for infectious disease (6 sources) Patient encounter status; Translations: [Encounter for screening for COVID-19] 12-12-2020 Episodic Intestinal infection (2 sources) Viral gastroenteritis; Translations: [Viral intestinal infection, unspecified] 01-14-2021 Episodic Malaise and fatigue (2 sources) Fatigue; Translations: [Other fatigue] 07-08-2017 Episodic Open wounds of extremities (1 source) Laceration without foreign body of unspecified hand, initial encounter; Translations: [Open wound of hand except finger(s) alone, without mention of complication] 07-23-2022 Episodic Other acquired deformities (2 sources) Acquired unequal leg length; Translations: [Unequal limb length (acquired), unspecified site] 05-05-2017 Episodic Other acquired deformities (5 sources) Leg length inequality; Translations: [Unequal limb length (acquired), unspecified site] Onset: 03-18-2018 03-18-2018 Episodic Other connective tissue disease (2 sources) Dysfunction of posterior tibial tendon; Translations: [Posterior tibial tendinitis, unspecified leg] 04-05-2024 Episodic Other connective tissue disease (5 sources) Tendinitis of right posterior tibial tendon; Translations: [Posterior tibial tendinitis, right leg] Onset: 03-18-2018 03-18-2018 Episodic Other connective tissue disease (1 source) Posterior tibial tendinitis, unspecified leg; Translations: [Posterior tibial tendon dysfunction] Onset: 04-22-2024 Episodic Other ear and sense organ disorders (2 sources) Otalgia, right ear; Translations: [Right ear pain] 06-20-2020 Episodic Other injuries and conditions due to external causes (1 source) Unspecified injury of head, sequela; Translations: [Unspecified injury of head, sequela] Onset: 09-26-2024 Episodic Other nervous system disorders (1 source) Attention and concentration deficit; Translations: [Attention and concentration deficit] Onset: 09-29-2016 Chronic Other nervous system disorders (1 source) Other chronic pain; Translations: [Other chronic pain] Onset: 01-15-2024 Chronic Other skin disorders (2 sources) Skin lesion; Translations: [Disorder of the skin and subcutaneous tissue, unspecified] 06-19-2021 Episodic Other upper respiratory infections (1 source) Acute sinusitis; Translations: [Acute sinusitis, unspecified] 05-14-2023 Episodic Residual codes; unclassified (2 sources) Hypersomnia; Translations: [Hypersomnia, unspecified] 10-12-2017 Chronic Residual codes; unclassified (2 sources) Insomnia; Translations: [Insomnia, unspecified] 07-23-2022 Episodic Residual codes; unclassified (2 sources) H/O Spinal surgery; Translations: [Other specified postprocedural states] 12-11-2020 Episodic Residual codes; unclassified (1 source) Submandibular salivary gland swelling; Translations: [Localized edema] 03-24-2024 Episodic Spondylosis; intervertebral disc disorders; other back problems (2 sources) Degeneration of lumbosacral intervertebral disc; Translations: [Other intervertebral disc degeneration, lumbosacral region] 05-05-2017 Chronic Spondylosis; intervertebral disc disorders; other back problems (7 sources) Backache; Translations: [Dorsalgia, unspecified] 04-30-2017 Episodic Unclassified (2 sources) Insomnia, unspecified; Translations: [Insomnia, unspecified] Onset: 09-29-2016 07-23-2022 Episodic Unclassified (1 source) Anxiety / 9() Onset: 09-29-2016 Unclassified (1 source) Low back pain, unspecified; Translations: [Low back pain, unspecified] Onset: 10-11-2024 Past or Other Problems Problem Classification Problem Date Documented Date Episodic/Chronic Intracranial injury (3 sources) Concussion injury of body structure; Translations: [Concussion] Onset: 01-02-2014 01-02-2014 Episodic Lymphadenitis (1 source) Enlarged lymph nodes, unspecified; Translations: [Enlarged lymph nodes, unspecified] Onset: 03-23-2024 Episodic Unclassified (1 source) Problem Unclassified (2 sources) history of right eardrum reconstruction 10-31-2021 Results Test Name Value Interpretation Reference Range Facility Internal Medicine Office Vis iton 08-19-2024 Internal Medicine Office Visit [facility] [address] [place] [address] [place] [address] OFFICE VISIT Date of Service: 08/19/24 MR#: [id number] Acct: [id number] Name: JOSE PIERSON Rep #: [id number] : 1990 Provider: SHARONA Sarah Age/Sex: 34/M Location[place] [facility] Status: Signed Intake Vital Signs 03/23/24 07:41 08/19/24 11:10 Height 5 ft 9 in 5 ft 9 in Weight: 215 lb 206 lb BMI 31.7 30.4 BP 122/80 H 132/80 H Blood Pressure Location Lt brachial Lt brachial Position Sitting Sitting Respiration 14 18 Pulse 75 84 Pulse Source Monitor Monitor Temp 97.9 F 97.8 F Temp Source Temporal Temporal Pulse Oximetry (%) 98 99 Oxygen Delivery Method room air room air Intake Visit Reasons: STILL HAVING BACK ISSUES Chief Complaint: STILL HAVING BACK ISSUES Is patient in pain?: Yes (2 back lower ) Allergies azithromycin Allergy (Mild, Verified 08/19/24 11:09) Rash erythromycin base Allergy (Unknown, Verified 08/19/24 11:09) Rash Medications ???Medication ???Instructions ???Recorded ???Confirmed ???Type trazodone 50 mg tablet 50 mg PO QHS PRN insomnia #30 tabs 09/04/23 08/19/24 Rx methocarbamol 750 mg tablet 750 mg PO QHS PRN muscle spasm #30 11/16/23 03/23/24 Rx tabs escitalopram oxalate 10 mg tablet 10 mg PO DAILY #90 tabs 07/18/24 Rx cyclobenzaprine 10 mg tablet 10 mg PO DAILY PRN muscle spasm 08/19/24 Rx #30 tabs meloxicam 7.5 mg tablet 7.5 mg PO DAILY PRN pain #60 tabs 08/22/24 Rx Nurse's Note: pt has c/o of lower back discomfort that is ongoing pt states he is also concerned about neurological symptoms states that ever since a concussion like injury in high school years, any time his head gets even slightly bumped he feels as if he has a concussion, states he has balance issues, headache, light sensitivity. pt states he has not seen a neurologist but is concerned that this is becoming debliitating [facility] Medical History Health care maintenance Insomnia Encounter for preventative adult health care examination Skin lesion History of COVID-19 Flu vaccine need Chronic neck and back pain Hemorrhoids Anxiety High triglycerides Headaches due to old head injury Chronic back pain Surgical History History of back surgery History of right knee surgery history of right eardrum reconstruction History of placement of ear tubes Family History Mother Diabetes Hypertension CVA (cerebral vascular accident) mini stroke Hyperlipidemia Father Hyperlipidemia Grandfather Cancer pancreatic Social History Smoking Status: Never smoker alcohol intake: current alcohol intake frequency: a few times a month substance use type: does not use what type of physical activity do you participate in: running and weight training frequency: 5-6 times per week HPI HPI Chief Complaint: STILL HAVING BACK ISSUES Details: JOSE PIERSON, is a 34 M who presents to the office today to discuss some symptoms that he has been having for the past 11-12 year now. Patient states that he has had concussions when he was in college. First time he fell getting out the shower hitting hit moore wall. He states that since that time any time he has a little bump or anything hits his head that he has these concussion symptoms return. He states that he will have some dizziness, vision changes, balance issues, and even some mood changes. He will have these symptoms for several days even after the smallest of impact to the head. He states that he has had it when his 2 year old nephew will flail his arms and hit his head or if his dog bumps his head when he is on the floor doing push-up, or when a soft foam ball even hits his head. He states that as soon as something hits his head he immediately starts to sort of panic that that he is going to have an issues and then most of the time he does have symptoms that follow. He previously had seen physician down in [place] for these symptoms and they initially though that it was sleep related.They did a work-up but that they were not ever able to really find any underlying causes / issues. He states that he does not stlil sleep well. He states that it is better than it was but it is still not great. He does take the trazodone periodically He thinks at some time he saw a neurologist in that he remembers having a CT scan which he thinks was back in 2012. He states he remembers that everything structurally was normal at that time. HE has continue with chronic back pains. He has had back pains / issues since [id number]. He states that there was no injury at that time or inciting inci (more content not included)... Normal [facility] CNTHERAPYon 05-11-2024 CNTHERAPY OT/PT/Speech Visit (PTWS) ---- JOSE PIERSON ([id number]) 1990 M Date Time Provider Department 05/11/24 10:00 AM NISHANT LUKE PTALEXANDRA Date Time Provider Department Center 05/11/2024 10:00 AM [id number], BRENT PTALEXANDRA [facility] Reason for Visit: PT Discharge [752] Primary Visit Diagnosis:Posterior tibial tendinitis of right leg [M76.821] Other Visit Diagnosis:Leg length inequality [M21.70] Allergies As of Date: 05/11/2024 Noted Allergy Reaction ZPAK (AZITHROMYCIN) 07/29/2013 2 - Rash Date Reviewed: 04/05/2024 Reviewed by: Noa Lua LPN - Fully Assessed Prescriptions as of 05/11/2024 - cyclobenzaprine (FLEXERIL) 10 mg tablet TAKE 1 TABLET BY MOUTH ONCE DAILY NEEDED FOR MUSCLE SPASM - trazodone HCl (TRAZODONE ORAL) Take by mouth. - escitalopram oxalate (LEXAPRO) 10 mg tablet Take 10 mg by mouth once daily. - Diclofenac Sodium (VOLTAREN) 1 % gel Apply to affected area up to twice a day Letter Text Normal [facility] CNTHERAPYon 04-22-2024 CNTHERAPY OT/PT/Speech Visit (PTWS) ---- JOSE PIERSON ([id number]) 1990 M Date Time Provider Department 04/22/24 1:00 PM NISHANT LUKE PTWS Date Time Provider Department Center 04/22/2024 1:00 PM [id number], BRENT PTWS [facility] Reason for Visit: PT Discharge [752] Primary Visit Diagnosis:Posterior tibial tendinitis of right leg [M76.821] Other Visit Diagnoses:Posterior tibial tendon dysfunction [M76.829] Leg length inequality [M21.70] Allergies As of Date: 04/22/2024 Noted Allergy Reaction ZPAK (AZITHROMYCIN) 07/29/2013 2 - Rash Date Reviewed: 04/05/2024 Reviewed by: Noa Lua LPN - Fully Assessed Prescriptions as of 04/22/2024 - cyclobenzaprine (FLEXERIL) 10 mg tablet TAKE 1 TABLET BY MOUTH ONCE DAILY NEEDED FOR MUSCLE SPASM - trazodone HCl (TRAZODONE ORAL) Take by mouth. - escitalopram oxalate (LEXAPRO) 10 mg tablet Take 10 mg by mouth once daily. - Diclofenac Sodium (VOLTAREN) 1 % gel Apply to affected area up to twice a day Letter Text Normal [facility] CNOVon 04-05-2024 CNOV Office Visit (PODIWS) ---- STEVENJOSE Vogel ([id number]) 1990 M Date Time Provider Department 04/05/24 9:45 AM EDWIN MUÑIZ PODIWS During your visit today, we recorded the following information about you: Noa Lua LPN 04/07/2024 10:44 PM Signed AMB ROOMING INTAKE FLOWSHEET DATA Patient presents with: Left Foot - New, orthotics Right Foot - New, orthotics HUBER Tran Matthew 04/07/2024 10:44 PM Signed Initial Podiatric Office Visit: Chief Complaint: This 33 year old male who presents with chief complaint:flatfoot HPI Patient here with desire to have his foot evaluated. Has orthotics and wants to make sure they are appropriately fitting PAIN EVALUATION No data found in the last 1 encounters. No results found for: HBA1C PCP: Amie Aldana MD PAST MEDICAL HISTORY Diagnosis Date Anxiety Current Outpatient Medications Medication Sig cyclobenzaprine (FLEXERIL) 10 mg tablet TAKE 1 TABLET BY MOUTH ONCE DAILY NEEDED FOR MUSCLE SPASM trazodone HCl (TRAZODONE ORAL) Take by mouth. escitalopram oxalate (LEXAPRO) 10 mg tablet Take 10 mg by mouth once daily. Diclofenac Sodium (VOLTAREN) 1 % gel Apply to affected area up to twice a day (Patient not taking: Reported on 03/03/2018 ) No current facility-administer ed medications for this visit. ALLERGIES Allergen Reactions Zpak [Azithromycin] Rash PAST SURGICAL HISTORY Procedure Laterality Date EAR TUBES HX 2000 RECONSTRUCTION, KNEE, INTRA-ART. Right 2009 TYP MEMBR REP W OR W/O PATCH 2000 FAMILY HISTORY Problem Relation Age of Onset Hypertension Mother Diabetes Mother No Family History Father Social History Tobacco Use Smoking status: Never Smokeless tobacco: Never Substance Use Topics Alcohol use: Not Currently Drug use: Never REVIEW OF SYSTEMS GENERAL: Negative for Malaise, significant weight loss, fever RESPIRATORY: Negative for cough, wheezing and shortness of breath CARDIOVASCULAR: Negative for chest pain, leg swelling and palpitations GI: Negative for abdominal discomfort, blood in stools or black stools and change in bowel habits : Negative for dysuria, frequency and incontinence MUSCULOSKELETAL: Negative for joint pain or swelling, back pain, and muscle pain. SKIN: Negative for lesions, rash, and itching. HEMATOLOGY/LYMPHOLO GY Negative for prolonged bleeding, bruising easily, and swollen nodes. ENDOCRINE: Negative for cold or heat intolerance, polyuria, polydipsia and goiter. NEURO: negative Physical Exam: Constitutional: Pt is a well developed 33 year old male who is alert, oriented and cooperative Eyes: Following during examination. No redness or drainage. Respiratory: RR normal and nonlabored. Even breathing. No evidence of distress or shortness of breath. Psychology: Patient is engaged during conversation. Normal affect and mood. Does not appear depressed or anxious during encounter. Vascular: Dorsalis pedis and posterior tibial pulses palpable as b/l Capillary Fill time < 5 seconds to digits 1-5 b/l Skin temperature warm to warm proximal to distal b/l Hair growth present to digits Neurological: intact light touch/epicritic sensation b/l intact protective sensation no significant neurological deficits Dermatological: Nails 1-5 b/l appear normal. Webspaces clean and dry 1-4 b/l. Skin appears well hydrated and supple. good color, texture, turgor. No open lesions present. No callosities present. Musculoskeletal/Ort hopaedic: Patient has no pain to palpation of b/l feet Foot type is pronated structurally AJ ROM is full with knee extended and flexed 1st MPJ is full when loaded and no pain or crepitus are noted with ROM. MTJ, STJ are full and free of pain and crepitus. +5/5 muscle strength dorsiflexion, plantarflexion, inversion, eversion b/l Radiographs: n/a ASSESSMENT: (M76.829) Posterior tibial tendon dysfunction (primary encounter diagnosis) PLAN: 1. History and physical examination performed. 2. Discussed flatfoot of b/l lower extremity. He has no pain. Has done well with prior orthotics and these appear to fit his foot nicely. He will benefit from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 Desirable 200-240 mg/dL Borderline >240 mg/dL High Risk Eosinophils/100 WBC (Bld) 0.9 % 0-5 [facility] Glucose [Mass/Vol] 87 mg/dL 74-106 [facility] Neutrophils (Bld) [#/Vol] 3.1 10*3/uL 2.0-7.7 [facility] Neutrophils/100 WBC (Bld) 56.8 % 47-70 [facility] Potassium [Moles/Vol] 4.2 mmol/L 3.5-5.1 [facility] Protein [Mass/Vol] 7.5 g/dL 6.4-8.2 [facility] Sodium [Moles/Vol] 135 mmol/L 136-145 [facility] Triglyceride [Mass/Vol] 72 mg/dL <199 [facility] Comment on above: The drugs N-Acetylcy steine and Metamizole may falsely depress this assay.Serum Triglycerides Reference Interval Normal <150 mg/dL Borderline high 150 - 199 mg/dL High 200 - 499 mg/dL Very High > or = 500 mg/dL WBC (Bld) [#/Vol] 5.4 10*3/uL 4.4-11.0 [facility] Blood erythrocytes count (nu mber/volume)Ordered By: Herrera Benitez on 07-23-2022 RBC (Bld) [#/Vol] 4.74 10*6/uL 4.6-6.2 [facility] Blood hemoglobin measurement (mass/volume)Ordered By: Herrera Benitez on 07-23-2022 Hemoglobin (Bld) [Mass/Vol] 14.8 g/dL 13.0-16.5 [facility] Blood lymphocytes/100 leukoc ytesOrdered By: Herrera Benitez on 07-23-2022 Lymphocytes/100 WBC (Bld) 32.8 % 19-41 [facility] Blood monocytes/100 leukocyt esOrdered By: Herrera Benitez on 07-23-2022 Monocytes/100 WBC (Bld) 8.7 % 0-10 [facility] Blood platelet mean volumeOr dered By: Herrera Benitez on 07-23-2022 Platelet mean volume (Bld) [Entitic vol] 10.9 fL 6.2-12.0 [facility] Determination of erythrocyte mean corpuscular volume (MCV)Ordered By: Herrera Benitez on 07-23-2022 MCV (RBC) [Entitic vol] 92.2 fL 80-94 [facility] Hematocrit Auto (Bld) [Volum e fraction]Ordered By: Herrera Benitez on 07-23-2022 Hematocrit (Bld) [Volume fraction] 43.7 % 40-54 [facility] Laboratory - Chemistry and C hemistry - challengeOrdered By: Herrera Benitez on 07-23-2022 ALP [Catalytic activity/Vol] 57 U/L 45-117 [facility] ALT [Catalytic activity/Vol] 33 U/L 16-61 [facility] CO2 [Moles/Vol] 25.0 mmol/L 21.0-32.0 [facility] Globulin (S) [Mass/Vol] 3.1 g/dL 2.2-4.2 [facility] Urea nitrogen/Creatinine [Mass ratio] 11.4 mg/mg 10-20 [facility] Laboratory - Hematology and Cell countsOrdered By: Herrera Benitez on 07-23-2022 Erythrocyte distribution width (RBC) [Entitic vol] 41.5 fL 35.1-43.9 [facility] Erythrocyte distribution width (RBC) [Ratio] 12.2 % 11.6-14.6 [facility] Immature granulocytes/100 WBC (Bld) 0.200 % 0.0-0.9 [facility] Comment on above: IG% - Immature Granu locytes (promyelocytes, myelocytes and metamyelocytes) > 1% indicates that a LEFT SHIFT is Present. MCH (RBC) [Entitic mass] 31.2 pg 27.0-32.0 [facility] Nucleated RBC/100 WBC (Bld) [Ratio] 0 % 0-5 [facility] MCHC Auto (RBC) [Mass/Vol]Or dered By: Herrera Benitez on 07-23-2022 MCHC (RBC) [Mass/Vol] 33.9 g/dL 32-36 [facility] No Panel InformationOrdered By: Herrera Benitez on 07-23-2022 Estimated GFR (MDRD) Amer 118 mL/min >60 [facility] Comment on above: GFR Calc Estimated GFR (MDRD) Non-Af Amer 97 mL/min >60 [facility] Comment on above: Non- GFR Calc Thyroid Stimulating Hormone (TSH) 1.19 uIU/mL 0.358-3.74 [facility] Platelets bldOrdered By: Mirella Benitez on 07-23-2022 Platelets (Bld) [#/Vol] 294 10*3/uL 150-450 [facility] Serum or plasma albumin pantera urement (mass/volume)Ordered By: Herrera Benitez on 07-23-2022 Albumin [Mass/Vol] 4.4 g/dL 3.2-5.0 [facility] Serum or plasma albumin/glob ulin mass ratioOrdered By: Herrera Benitez on 07-23-2022 Albumin/Globulin [Mass ratio] 1.4 {ratio} 0.9-2.4 [facility] Serum or plasma calcium pantera urement (mass/volume)Ordered By: Herrera Benitez on 07-23-2022 Calcium [Mass/Vol] 9.2 mg/dL 8.5-10.1 [facility] Serum or plasma cholesterol in HDL measurement (mass/volume)Ordered By: Herrera Benitez on 07-23-2022 Cholesterol in HDL [Mass/Vol] 46 mg/dL >40 [facility] Comment on above: The drugs N-Acetylcy steine and Metamizole may falsely depress this assay. Reference Range HDL <40 mg/dL Low HDL Cholesterol HDL >or= 60 mg/dL High HDL Cholesterol Serum or plasma cholesterol in VLDL measurement (mass/volume)Ordered By: Herrera Benitez on 07-23-2022 Cholesterol in VLDL [Mass/Vol] 14 mg/dL 5-40 [facility] Serum or plasma creatinine m easurement (mass/volume)Ordered By: Herrera Benitez on 07-23-2022 Creatinine [Mass/Vol] 0.96 mg/dL 0.70-1.30 [facility] Comment on above: The validity of the calculated GFR & GFRAA in patients over 70 years has not been determined. Clinical correlation is essential. Serum or plasma low density lipoprotein (LDL) cholesterol measurement (mass/volume)Ordered By: Herrera Benitez on 07-23-2022 Cholesterol in LDL [Mass/Vol] 122 mg/dL 0-130 [facility] Serum or plasma urea nitroge n measurement (mass/volume)Ordered By: Herrera Benitez on 07-23-2022 Urea nitrogen [Mass/Vol] 11 mg/dL 7-18 [facility] Thin prep Papanicolaou smear with manual screeningOrdered By: Herrera Benitez on 07-23-2022 Thin prep Papanicolaou smear with manual screening 20 U/L 15-37 [facility] Thin prep Papanicolaou smear with manual screening 5 5-15 [facility] Clinical Summary: HMSPatient IDon 05-05-2018 SOP [facility] Work Phone: Office Visit: Follow-up by tomy palmer, Rm: 11on 05-05-2018 NEGATED: Highlighted rowProtein mass conc Done [facility] Work Phone: Vital Signs Date Time Vital Sign Value Performing Clinician Facility 08-19-2024 11:10-0400 Body height 175.[address] Laith Aguirre MD Work Phone: [facility] 08-19-2024 11:10-0400 Body mass index (BMI) [Ratio] 30.4 kg/m2 Dr. Laith Aguirre MD Work Phone: [facility] 08-19-2024 11:10-0400 Body temperature 97.8 [degF] Dr. Laith Aguirre MD Work Phone: [facility] 08-19-2024 11:10-0400 Body weight 93.[address] Laith Aguirre MD Work Phone: [facility] 08-19-2024 11:10-0400 Diastolic blood pressure 80 mm[Hg] Dr. Laith Aguirre MD Work Phone: [facility] 08-19-2024 11:10-0400 Heart rate 84 /min Dr. Laith Aguirre MD Work Phone: [facility] 08-19-2024 11:10-0400 Respiratory rate 18 /min Dr. Laith Aguirre MD Work Phone: [facility] 08-19-2024 11:10-0400 SaO2% (BldA) [Mass fraction] 99 % Dr. Laith Aguirre MD Work Phone: [facility] 08-19-2024 11:10-0400 Systolic blood pressure 132 mm[Hg] Dr. Laith Aguirre MD Work Phone: [facility] 07-23-2022 09:39-0400 Body height 175.[address] Laith Aguirre Work Phone: [facility] 07-23-2022 09:39-0400 Body mass index (BMI) [Ratio] 29.7 kg/m2 Dr. Laith Aguirre Work Phone: [facility] 07-23-2022 09:39-0400 Body temperature 99 [degF] Dr. Laith Aguirre Work Phone: [facility] 07-23-2022 09:39-0400 Body weight 91.[address] Laith Aguirre Work Phone: [facility] 07-23-2022 09:39-0400 Diastolic blood pressure 82 mm[Hg] Dr. Laith Aguirre Work Phone: [facility] 07-23-2022 09:39-0400 Heart rate 70 /min Dr. Laith Aguirre Work Phone: [facility] 07-23-2022 09:39-0400 Respiratory rate 12 /min Dr. Laith Aguirre Work Phone: [facility] 07-23-2022 09:39-0400 SaO2% (BldA) [Mass fraction] 99 % Dr. Laith Aguirre Work Phone: [facility] 07-23-2022 09:39-0400 Systolic blood pressure 124 mm[Hg] Dr. Laith Aguirre Work Phone: [facility] NEGATED: Highlighted [id number] 08:21-0500 BMI (Body Mass Index) 28.37 kg/m2 Nette Carr AT [facility] Work Phone: NEGATED: Highlighted [id number] 08:21-0500 BP Diastolic 81 mm[Hg] Nette Bruno AT [facility] Work Phone: NEGATED: Highlighted [id number] 08:21-0500 BP Systolic 127 mm[Hg] Nette Bruno AT [facility] Work Phone: NEGATED: Highlighted [id number] 08:21-0500 Height 177.8 cm Nette Bruno AT [facility] Work Phone: NEGATED: Highlighted [id number] 08:21-0500 Height 178 cm Nette Bruno AT [facility] Work Phone: NEGATED: Highlighted [id number] 08:21-0500 Pulse (Heart Rate) 50 /min Nette Bruno AT [facility] Work Phone: NEGATED: Highlighted [id number] 08:21-0500 Weight 89.36 kg Nette Carr AT [facility] Work Phone: NEGATED: Highlighted [id number] 08:21-0500 Weight 90 kg Nette Carr AT [facility] Work Phone: Encounters Encounter Date Encounter Type Care Provider Facility Start: 09-28-2024 ambulatory Edwin TABOR Facilit y:[facility] Start: 08-19-2024 End: 08-19-2024 Patient encounter procedure Edwin TABOR -[facility] Work Phone: Start: 08-19-2024 End: 08-19-[address] Laith Aguirre MD Work Phone: [facility] Work Phone: Start: 05-11-2024 End: 05-11-2024 ambulatory Nishant Golias PT Work Phone: [facility] Comment on above: Posterior tibial ten dinitis of right leg (Primary Dx); Leg length inequality Start: 04-22-2024 End: 04-22-2024 ambulatory Nishant Golias PT Work Phone: [facility] Comment on above: Posterior tibial ten dinitis of right leg (Primary Dx); Posterior tibial tendon dysfunction; Leg length inequality Start: 04-05-2024 End: 04-05-2024 ambulatory DEWIN MUÑIZ Facility:[facility] Start: 04-05-2024 End: 04-05-2024 Patient encounter procedure Edwin Muñiz Work Phone: Podiatry Comment on above: Posterior tibial ten don dysfunction (Primary Dx) Start: 03-23-2024 End: 03-23-2024 ambulatory Edwin TABOR [facility] Start: 01-12-2024 End: 01-12-[facility] Start: 12-31-2023 Encounter for genera l adult medical examination without abnormal findings [facility] Start: 11-30-[address] Laith Aguirre MD Work Phone: [facility] Start: 11-30-2023 End: 11-30-2023 [facility] Start: 11-30-2023 End: 11-30-[address] [facility] Facility:[facility] Start: 07-23-2022 End: 07-23-[address] Laith Aguirre Work Phone: [facility] Work Phone: Start: 07-23-[address] Laith Aguirre Work Phone: [facility] Start: 07-23-2022 End: 07-23-[address] Laith Aguirre Work Phone: [facility] Start: 05-05-2018 End: 05-05-2018 Ot evaluation Ronnie Kwon MD Work Phone: [facility] Work Phone: Start: 05-05-2018 End: 05-05-2018 Patient encounter procedure Ronnie Kwon MD Work Phone: [facility] Work Phone: Start: 09-29-2016 End: 09-29-2016 Ambulatory [facility] Procedures Date Procedure Procedure Detail Performing Clinician Start: 05-05-2018 End: 05-05-2018 Blood pressure within normal parameters - no follow-up required Ronnie Kwon MD Work Phone: Start: 05-05-2018 End: 05-05-2018 BMI documented as above normal parameters - follow-up documented Ronnie Kwon MD Work Phone: Start: 05-05-2018 End: 05-05-2018 Documentation of current medications Ronnie Kwon MD Work Phone: Start: 05-05-2018 End: 05-05-2018 Pain assessment not documented - reason not given Ronnie Kwon MD Work Phone: Start: 05-05-2018 End: 05-05-2018 Tobacco non-user Ronnie Kwon MD Work Phone: Start: 05-05-2018 End: 05-05-2018 Wrist Brace Ronnie Kwon MD Work Phone: Plan of Treatment Date Care Activity Detail Author Start: 07-23-2032 Urine microalbumin profile DTaP,Tdap,Td Vaccine (3 - Td or Tdap) [facility] Start: 12-06-2023 Covid-19 Vaccine (2023- season) Covid-19 Vaccine (2023- season) [facility] Start: 12-06-2023 Influenza [facility] Start: 05-05-2018 End: 05-05-2018 Appointment Appointment [facility] Work Phone: Start: 05-05-2018 End: 05-05-2018 Radex wrist complete minimum 3 views XR WRIST 3 VWS-LT [facility] Work Phone: Start: 2010 Anxiety Screening Anxiety Screening [facility] Start: 2010 Depression Screening Depression Screening [facility] Start: 2010 Hepatitis C screening Hepatitis C Screening [facility] Start: 2010 HIV screening HIV Screening [facility] Start: 1992 Hepatitis B Vaccine (2 of 3 - 3-dose series) Hepatitis B Vaccine (2 of 3 - 3-dose series) [facility] Immunizations Immunization Date Immunization Notes Care Provider Genie zhao 07-23-2022 tetanus toxoid, reduced diphtheria toxoid, and acellular pertussis vaccine, adsorbed Dr. Laith Aguirre Work Phone: [facility] 03-31-2017 influenza, injectabl e, quadrivalent, preservative free Dr. Laith Aguirre MD Work Phone: [facility] 03-31-2017 influenza, seasonal, injectable Dr. Laith Aguirre Work Phone: [facility] 03-31-2017 influenza virus vaccine, unspecified formulation Edwin Muñiz Work Phone: [facility] No information available. Nette Carr AT [facility] Work Phone: Payers Date Payer Category Payer Self-pay [id number] 2021 Private Health Insurance [facility] [employer] PPO [id number] 2021-Present [phone] [address] [address] [place] [address] PPO [id number] 2021 Unknown [id number] [facility] [[email or web address] [id number] Unknown [employer] [place] [id number] Unknown [id number] Unknown [id number] Unknown [id number] Unknown [id number] Unknown [id number] Unknown [id number] Social History Date Type Detail Facility Start: 05-05-2018 End: 05-05-2018 Assertion Unknown if ever smoked [facility] Work Phone: Start: 04-13-2017 Occasional [facility] Start: 04-13-2017 None [facility] Start: 1990 Sex Assigned At Male [facility] Start: 03-03-2018 End: 07-21-2023 Tobacco smoking status NHIS Never smoked tobacco [facility] Start: 03-03-2018 Tobacco use and exposure Smokeless tobacco non-user [facility] Start: 04-05-2024 Alcoholic beverage intake Ex-drinker (finding) [facility] Start: 04-05-2024 End: 04-22-2024 History of Social function [facility] Start: 04-05-2024 End: 04-22-2024 Tobacco use panel [facility] National Score (1-100), lower number is lower risk 91 [facility] Start: 1992 Sex assigned at Not [facility] file [facility] NEGATED: Highlighted rowStart: 05-05-2018 End: 05-05-2018 Employment detail 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 Author Type: Physical Therapist Type: Progress Notes Filed: 05/11/2024 10:20 Note Text: [facility] DME ISSUE NOTE Patient identified by name and date: Yes Subjective: Jose Pierson is a 33 year old male seen today for fitting and forklift picker of 2 pairs of refurbished custom foot orthotics. Equipment Owned: custom foot orthotics DME Delivery: Pt was educated on wear schedule and care of custom foot orthotics. Pt was educated on the option of having orthotics refurbished as needed in the future as long as shell is performing it's intended function well. Pt was educated on approximate cost of refurbishing orthotics and an approximate time frame when this might be necessary. The fit of orthotics was assessed with pt standing, with and without shoes. The comfort of orthotics was assessed with pt standing and walking with orthotics in shoes. Pt denied any rubbing or pinching and felt that fit of custom orthotics was correct. Contact information for this therapist was provided to patient. Custom biomechanical foot orthotics with serial number: #[id number] and #[id number] were issued to patient and proof of receipt form signed by pt and therapist. All specifications for custom foot orthotics can be found in orthotic evaluation visit note. Planned Interventions: Follow up as needed for brace fitting/issues. 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 Equipment Owned: custom foot orthotics DME Delivery: Pt was educated on wear schedule and care of custom foot orthotics. Pt was educated on the option of having orthotics refurbished as needed in the future as long as shell is performing it's intended function well. Pt was educated on approximate cost of refurbishing orthotics and an approximate time frame when this might be necessary. The fit of orthotics was assessed with pt standing, with and without shoes. The comfort of orthotics was assessed with pt standing and walking with orthotics in shoes. Pt denied any rubbing or pinching and felt that fit of custom orthotics was correct. Contact information for this therapist was provided to patient. Custom biomechanical foot orthotics with serial number: #[id number] and #[id number] were issued to patient and proof of receipt form signed by pt and therapist. All specifications for custom foot orthotics can be found in orthotic evaluation visit note. Planned Interventions: Follow up as needed for brace fitting/issues. Billing:[facility]: Equipment: [id number] x2 for two pairs of refurbished custom foot orthotics No charge for time Total time: 15 minutes Nishant Luke PT documented in this encounter [facility] 04-22-2024 Note HNO ID: [id number] Author: NISHANT LUKE PT Service: ? Author Type: Physical Therapist Type: Progress Notes Filed: 04/22/2024 13:17 Note Text: [facility] DME ISSUE NOTE Patient identified by name and date: Yes Subjective: Jose Pierson is a 33 year old male seen today for fitting and forklift picker of duplicate pair of custom foot orthotics. He is also requesting to have his previous pairs sent back for refurbishment. Equipment Owned: custom foot orthotics DME Delivery: Pt was educated on wear schedule and care of custom foot orthotics. Pt was educated on the option of having orthotics refurbished as needed in the future as long as shell is performing it's intended function well. Pt was educated on approximate cost of refurbishing orthotics and an approximate time frame when this might be necessary. Pt was urged to follow the wear schedule and to call with any questions or concerns. The fit of orthotics was assessed with pt standing, with and without shoes. The comfort of orthotics was assessed with pt standing and walking with orthotics in shoes. Pt denied any rubbing or pinching and felt that fit of custom orthotics was correct. Contact information for this therapist was provided to patient. Custom biomechanical foot orthotics with serial number: #[id number] were issued to patient and proof of receipt form signed by pt and therapist. All specifications for custom foot orthotics can be found in orthotic evaluation visit note. Planned Interventions: Follow up as needed for brace fitting/issues. Billing:[facility]: Equipment: [id number] x2 duplicate pair of custom foot orthotics No charge for time. Total time: 10 minutes Nishant Luke PT [facility] 04-22-2024 History of Present illness Narrative [facility] DME ISSUE NOTE Patient identified by name and date: Yes Subjective: Jose Pierson is a 33 year old male seen today for fitting and forklift picker of duplicate pair of custom foot orthotics. He is also requesting to have his previous pairs sent back for refurbishment. Equipment Owned: custom foot orthotics DME Delivery: Pt was educated on wear schedule and care of custom foot orthotics. Pt was educated on the option of having orthotics refurbished as needed in the future as long as shell is performing it's intended function well. Pt was educated on approximate cost of refurbishing orthotics and an approximate time frame when this might be necessary. Pt was urged to follow the wear schedule and to call with any questions or concerns. The fit of orthotics was assessed with pt standing, with and without shoes. The comfort of orthotics was assessed with pt standing and walking with orthotics in shoes. Pt denied any rubbing or pinching and felt that fit of custom orthotics was correct. Contact information for this therapist was provided to patient. Custom biomechanical foot orthotics with serial number: #[id number] were issued to patient and proof of receipt form signed by pt and therapist. All specifications for custom foot orthotics can be found in orthotic evaluation visit note. Planned Interventions: Follow up as needed for brace fitting/issues. Billing:[facility]: Equipment: [id number] x2 duplicate pair of custom foot orthotics No charge for time. Total time: 10 minutes Nishant Luke PT documented in this encounter [facility] 04-05-2024 Note HNO ID: [id number] Author: EDWIN MUÑIZ, ? Service: ? Author Type: Physician Type: Progress Notes Filed: 04/07/2024 22:44 Note Text: Initial Podiatric Office Visit: Chief Complaint: This 33 year old male who presents with chief complaint:flatfoot HPI Patient here with desire to have his foot evaluated. Has orthotics and wants to make sure they are appropriately fitting PAIN EVALUATION No data found in the last 1 encounters. No results found for: HBA1C PCP: Amie Aldana MD PAST MEDICAL HISTORY Diagnosis Date Anxiety Current Outpatient Medications Medication Sig cyclobenzaprine (FLEXERIL) 10 mg tablet TAKE 1 TABLET BY MOUTH ONCE DAILY NEEDED FOR MUSCLE SPASM trazodone HCl (TRAZODONE ORAL) Take by mouth. escitalopram oxalate (LEXAPRO) 10 mg tablet Take 10 mg by mouth once daily. Diclofenac Sodium (VOLTAREN) 1 % gel Apply to affected area up to twice a day (Patient not taking: Reported on 03/03/2018 ) No current facility-administered medications for this visit. ALLERGIES Allergen Reactions Zpak [Azithromycin] Rash PAST SURGICAL HISTORY Procedure Laterality Date EAR TUBES HX 1999 RECONSTRUCTION, KNEE, INTRA-ART. Right 2009 TYP MEMBR REP W OR W/O PATCH 2000 FAMILY HISTORY Problem Relation Age of Onset Hypertension Mother Diabetes Mother No Family History Father Social History Tobacco Use Smoking status: Never Smokeless tobacco: Never Substance Use Topics Alcohol use: Not Currently Drug use: Never REVIEW OF SYSTEMS GENERAL: Negative for Malaise, significant weight loss, fever RESPIRATORY: Negative for cough, wheezing and shortness of breath CARDIOVASCULAR: Negative for chest pain, leg swelling and palpitations GI: Negative for abdominal discomfort, blood in stools or black stools and change in bowel habits : Negative for dysuria, frequency and incontinence MUSCULOSKELETAL: Negative for joint pain or swelling, back pain, and muscle pain. SKIN: Negative for lesions, rash, and itching. HEMATOLOGY/LYMPHOLOGY Negative for prolonged bleeding, bruising easily, and swollen nodes. ENDOCRINE: Negative for cold or heat intolerance, polyuria, polydipsia and goiter. NEURO: negative Physical Exam: Constitutional: Pt is a well developed 33 year old male who is alert, oriented and cooperative Eyes: Following during examination. No redness or drainage. Respiratory: RR normal and nonlabored. Even breathing. No evidence of distress or shortness of breath. Psychology: Patient is engaged during conversation. Normal affect and mood. Does not appear depressed or anxious during encounter. Vascular: Dorsalis pedis and posterior tibial pulses palpable as b/l Capillary Fill time < 5 seconds to digits 1-5 b/l Skin temperature warm to warm proximal to distal b/l Hair growth present to digits Neurological: intact light touch/epicritic sensation b/l intact protective sensation no significant neurological deficits Dermatological: Nails 1-5 b/l appear normal. Webspaces clean and dry 1-4 b/l. Skin appears well hydrated and supple. good color, texture, turgor. No open lesions present. No callosities present. Musculoskeletal/Orthopaedic: Patient has no pain to palpation of b/l feet Foot type is pronated structurally AJ ROM is full with knee extended and flexed 1st MPJ is full when loaded and no pain or crepitus are noted with ROM. MTJ, STJ are full and free of pain and crepitus. +5/5 muscle strength dorsiflexion, plantarflexion, inversion, eversion b/l Radiographs: n/a ASSESSMENT: (M76.829) Posterior tibial tendon dysfunction (primary encounter diagnosis) PLAN: 1. History and physical examination performed. 2. Discussed flatfoot of b/l lower extremity. He has no pain. Has done well with prior orthotics and these appear to fit his foot nicely. He will benefit from continued use. His current pair of orthotics does show significant signs of wearing. Would benefit from resurfacing. Due to hindfoot pronation, I do feel a custom orthotic would provide hindfoot support. I will order a new pair of custom orthotics as these will be more benefical compared to an over the counter device 3. Custom orthotics ordered Edwin Muñiz DPM Podiatry [address] [facility] [address] Dept: [phone] Dept [facility] 04-05-2024 History of Present illness Narrative Initial Podiatric Office Visit: Chief Complaint: This 33 year old male who presents with chief complaint:flatfoot HPI Patient here with desire to have his foot evaluated. Has orthotics and wants to make sure they are appropriately fitting PAIN EVALUATION No data found in the last 1 encounters. No results found for: HBA1C PCP: Amie Aldana MD PAST MEDICAL HISTORY Diagnosis Date Anxiety Current Outpatient Medications Medication Sig cyclobenzaprine (FLEXERIL) 10 mg tablet TAKE 1 TABLET BY MOUTH ONCE DAILY NEEDED FOR MUSCLE SPASM trazodone HCl (TRAZODONE ORAL) Take by mouth. escitalopram oxalate (LEXAPRO) 10 mg tablet Take 10 mg by mouth once daily. Diclofenac Sodium (VOLTAREN) 1 % gel Apply to affected area up to twice a day (Patient not taking: Reported on 03/03/2018 ) No current facility-administered medications for this visit. ALLERGIES Allergen Reactions Zpak [Azithromycin] Rash PAST SURGICAL HISTORY Procedure Laterality Date EAR TUBES HX 1999 RECONSTRUCTION, KNEE, INTRA-ART. Right 2009 TYP MEMBR REP W OR W/O PATCH 2000 FAMILY HISTORY Problem Relation Age of Onset Hypertension Mother Diabetes Mother No Family History Father Social History Tobacco Use Smoking status: Never Smokeless tobacco: Never Substance Use Topics Alcohol use: Not Currently Drug use: Never REVIEW OF SYSTEMS GENERAL: Negative for Malaise, significant weight loss, fever RESPIRATORY: Negative for cough, wheezing and shortness of breath CARDIOVASCULAR: Negative for chest pain, leg swelling and palpitations GI: Negative for abdominal discomfort, blood in stools or black stools and change in bowel habits : Negative for dysuria, frequency and incontinence MUSCULOSKELETAL: Negative for joint pain or swelling, back pain, and muscle pain. SKIN: Negative for lesions, rash, and itching. HEMATOLOGY/LYMPHOLOGY Negative for prolonged bleeding, bruising easily, and swollen nodes. ENDOCRINE: Negative for cold or heat intolerance, polyuria, polydipsia and goiter. NEURO: negative Physical Exam: Constitutional: Pt is a well developed 33 year old male who is alert, oriented and cooperative Eyes: Following during examination. No redness or drainage. Respiratory: RR normal and nonlabored. Even breathing. No evidence of distress or shortness of breath. Psychology: Patient is engaged during conversation. Normal affect and mood. Does not appear depressed or anxious during encounter. Vascular: Dorsalis pedis and posterior tibial pulses palpable as b/l Capillary Fill time < 5 seconds to digits 1-5 b/l Skin temperature warm to warm proximal to distal b/l Hair growth present to digits Neurological: intact light touch/epicritic sensation b/l intact protective sensation no significant neurological deficits Dermatological: Nails 1-5 b/l appear normal. Webspaces clean and dry 1-4 b/l. Skin appears well hydrated and supple. good color, texture, turgor. No open lesions present. No callosities present. Musculoskeletal/Orthopaedic: Patient has no pain to palpation of b/l feet Foot type is pronated structurally AJ ROM is full with knee extended and flexed 1st MPJ is full when loaded and no pain or crepitus are noted with ROM. MTJ, STJ are full and free of pain and crepitus. +5/5 muscle strength dorsiflexion, plantarflexion, inversion, eversion b/l Radiographs: n/a ASSESSMENT: (M76.829) Posterior tibial tendon dysfunction (primary encounter diagnosis) PLAN: 1. History and physical examination performed. 2. Discussed flatfoot of b/l lower extremity. He has no pain. Has done well with prior orthotics and these appear to fit his foot nicely. He will benefit from continued use. His current pair of orthotics does show significant signs of wearing. Would benefit from resurfacing. Due to hindfoot pronation, I do feel a custom orthotic would provide hindfoot support. I will order a new pair of custom orthotics as these will be more benefical compared to an over the counter device 3. Custom orthotics ordered Edwin Muñiz DPM Podiatry [address] [facility] [address] Dept: [phone] Dept AMB ROOMING INTAKE FLOWSHEET DATA Patient presents with: Left Foot - New, orthotics Right Foot - New, orthotics Noa uLa LPN documented in this encounter [facility] 04-05-2024 Note HNO ID: [id number] Author: NOA LUA LPN Service: ? Author Type: LICENSED NURSE Type: Progress Notes Filed: 04/07/2024 22:44 Note Text: AMB ROOMING INTAKE FLOWSHEET DATA Patient presents with: Left Foot - New, orthotics Right Foot - New, orthotics Noa Lua LPN [facility] Evaluation note Diagnosis Onset Date Insomnia acute Anxiety chronic Laceration of hand noneactiv e [facility] Work Phone: Evaluation note* Diagnosis Posterior tibial tendon dysfunction- Primary Other disorders of synovium, tendon, and bursa [facility] this encounter [facility] Diagnosis Posterior tibial tendinitis of right leg- Primary Tibialis tendinitis Posterior tibial tendon dysfunction Other disorders of synovium, tendon, and bursa Leg length inequality Unequal leg length (acquired) documented in this encounter [facility] Diagnosis Posterior tibial tendinitis of right leg- Primary Tibialis tendinitis Leg length inequality Unequal leg length (acquired) documented in this encounter [facility] noteNo assessment information availableVencor Hospital Work Phone: Reason for referral (narrative)No reason for referral information availableVencor Hospital Work Phone: Summary Purpose Family History No Family History Records Found Relationship Condition Age at Onset Recorded Date/T iron mother Diabetes mellitus Unknown Hypertension Unknown Cerebrovascular accident (CVA) Unknown Hyperlipidemia Unknown father Hyperlipidemia Unknown grandfather Malignant neoplasm Unknown Advance Directives No Advanced Directives Records Found Advance Directive Response Recorded Date/ Time Living Will No January 24 11:37am Power of Director [employer] No January 24, 2022 11:37am Chief Complaint Chief Complaint Description Start Date left wrist Preliminary chief co mplaint data, not yet signed by the author as of Instructions Instruction Description Start Date Patient advised to follow-up with Primary Care Physician for BMI management. Assessments There may be information available, but it has not been provided by the sender. Review of System There may be information available, but it has not been provided by the sender. History of Present Illness There may be information available, but it has not been provided by the sender. Chief Complaint and Reason for Visit Chief Complaint Med refills Reason for Visit Insomnia Anxiety Laceration of hand Chief Complaint Admit Date STILL HAVING BACK ISSUES August 19, 2024 10:57am Reason for Referral Specialty Diagnoses / Procedures Referred By Contac t Referred To Contact [facility] Diagnoses Posterior tibial tendon dysfunction Procedures CONSULT TO PHYSICAL THERAPY PHYSICAL THERAPY EVALUATION HIGH COMPLEX 45 MINS Edwin Muñiz [address] [address] [facility] [address] [address] Referral ID Status Reason Start Date Expiration Date Visits Requested Visits Authorized [id number] Pending Review Auto-Generat ed Referral 04/05/2025 1 1 Additional Source Comments (unrecognized sect ion and content) No Status Records FoundNo Status Records FoundNo Status Records Found INFORMATION SOURCE (unrecogn ized section and content) DATE CREATED AUTHOR 09/30/[address] [facility] DATE CREATED AUTHOR AUTHOR'S ORGANIZ ATION 05/13/2024 [facility] DATE CREATED AUTHOR AUTHOR'S ORGANIZ ATION 09/27/2024 [facility] Reason for Visit (unrecogniz ed section and content) Reason For Visit Description Follow-up by complaint Preliminary reason f or visit data, not yet signed by the author as of left wrist Reason Comments New orthotics Reason Comments PT Discharge Specialty Diagnoses / Procedures Referred By Contac t Referred To Contact [facility] Diagnoses Posterior tibial tendon dysfunction Procedures CONSULT TO PHYSICAL THERAPY PHYSICAL THERAPY EVALUATION HIGH COMPLEX 45 MINS Edwin Muñiz [address] [address] [facility] [address] [address] Referral ID Status Reason Start Date Expiration Date Visits Requested Visits Authorized [id number] Authorized Auto-Generat ed Referral 04/06/2024 04/05/2025 40 40 Care Teams (unrecognized sec tion and content) Team Status: Active Member Role Status Dates Dr. Laith Aguirre MD Family Provider Active Dr. Laith Aguirre MD Primary Care Provider Active Team Status: Inactive Member Role Status Dates Dr. Laith Aguirre MD Primary Care Provider, Refer ring Provider Active Herrera Benitez OPERATIONS MGR, OPERATIONS MGR-C Attending Provider Active Team Status: Inactive Member Role Status Dates Dr. Laith Aguirre MD Primary Care Provider Active Herrera Benitez OPERATIONS MGR, OPERATIONS MGR-C Attending Provider, Referring Prov ider Active Sales Support Assistant Relationship Specialty Start Date End Date Amie Aldana PCP - General Family Medicine 06/30/12 Sales Support Assistant Relationship Specialty Start Date End Date Amie Aldana PCP - General Family Medicine 06/30/12 Sales Support Assistant Relationship Specialty Start Date End Date Amie Aldana PCP - General Family Medicine 06/30/12 Team Status: Inactive Member Role Status Dates Dr. Laith Aguirre MD Primary Care Provider Active Start: August 19, 2024 End: August 19, 2024 Dr. Laith Aguirre MD Referring Provider Active Start: August 19, 2024 End: August 19, 2024 SHARONA Lipscomb Attending Provider Active St art: August 19, 2024 End: August 19, 2024 Goals (unrecognized section and content) Goals may be documented in a n alternate sectionGoals may be documented in an alternate section Source Comments (unrecognize d section and content) In the event this informatio n is protected by the Federal Confidentiality of Alcohol and Drug Abuse Patient Records regulations: The Federal rules restrict any use of the information to criminally investigate or prosecute any alcohol or drug abuse patient.[facility] the event this information is protected by the Federal Confidentiality of Alcohol and Drug Abuse Patient Records regulations: The Federal rules restrict any use of the information to criminally investigate or prosecute any alcohol or drug abuse patient.[facility] Hospital[facility] the event this information is protected by the Federal Confidentiality of Alcohol and Drug Abuse Patient Records regulations: The Federal rules restrict any use of the information to criminally investigate or prosecute any alcohol or drug abuse patient.[facility] FOR RECORDS PERTAINING TO PATIENTS WHO ARE OR HAVE BEEN ENROLLED IN A CHEMICAL DEPENDENCY/SUBSTANCEABUSE PROGRAM, SOME INFORMATION MAY BE OMITTED. This clinical summary was aggregated from multiple sources. Caution should be exercised in using it in the provision of clinical care. This summary normalizes information from multiple sources, and as a consequence, information in this document may materially change the coding, format and clinical context of patient data. In addition, data may be omitted in some cases. CLINICAL DECISIONS SHOULD BE BASED ON THE PRIMARY CLINICAL RECORDS. [facility] [employer] [facility]. provides no warranty or guarantee of the accuracy or completeness of information in this document.
== END | disposition home or self-care (01) ==
LOC: OPMRI 07:02
PROVIDERS: PCP Internal Medicine; Referring Provider Physician Assistant; Visit Provider Physician Assistant
DX: G44.309 Post-traumatic headache, unspecified, not intractable (principal); S09.90XS Unspecified injury of head, sequela
CPT/HCPCS: 70553; A9575

== ENCOUNTER → 2025-01-13 | Outpatient (CLI) | payer OTHER, SELFPAY ==
[2025-01-13 10:29] LABS: Hematocrit 41.5 % (40-54); Hemoglobin 14.6 g/dL (13.0-16.5); Mean Corp Hgb Conc 35.2 g/dL (32-36); Mean Corpuscular Volume 88.9 fL (80-94); Mean Platelet Vol. 10.7 fl (6.2-12.0); Platelet Count 302 K/mm3 (150-450); RBC Distribution Width CV 11.9 % (11.6-14.6); RBC Distribution Width SD 38.4 fl (35.1-43.9); Red Blood Count 4.67 M/mm3 (4.6-6.2); White Blood Count 5.2 K/mm3 (4.4-11.0)
[2025-01-13 11:51] LABS: AST(SGOT) 27 U/L (<=37); Alanine Aminotransfer ALT/SGPT 48 U/L (<=46); Albumin, Serum 4.6 g/dL (3.5-5.0); Alkaline Phosphatase 53 U/L (40-129); Anion Gap 11 (5-15); BUN 15 mg/dL (4-19); BUN/Creat Ratio 17.6 RATIO (10-20); Calcium,Total 9.2 mg/dL (7.6-11.0); Carbon Dioxide 24.6 mmol/L (21.0-32.0); Chloride 103 mmol/L (98-108); Globulin 2.8 g/dL (2.2-4.2); Glucose 92 mg/dL (70-99); Magnesium 2.3 mg/dL (1.5-2.2); Potassium 4.1 mmol/L (3.3-5.1); Vitamin B12 601 pg/mL (180-914)
[2025-01-16 13:08] LABS: ANTINUCLEAR ANTIBODIES DIRECT Negative (Negative); Vitamin D 1,25-Dihydroxy 73.8 pg/mL (24.8-81.5)
[2025-01-17 22:07] LABS: Folate, Hemolysate Test 487.0 ng/mL (Not Estab.); Folate, RBC (Hct) Test 42.7 % (37.5-51.0); Folates, RBC Test 1141 ng/mL (>498); VITAMIN B6 77.2 ug/L (3.4-65.2); Vitamin B1, Thiamine 180.6 nmol/L (66.5-200.0)
== END | disposition home or self-care (01) ==
LOC: MTLAB 08:17
PROVIDERS: Psychiatry & Neurology Neurology; PCP Internal Medicine; Visit Provider Internal Medicine
DX: F41.9 Anxiety disorder, unspecified (principal); G47.10 Hypersomnia, unspecified; R53.83 Other fatigue
CPT/HCPCS: 36415; 80053; 82607; 82652; 82747; 83735; 84207; 84425; 84443; 85014; 85027; 86038; 86225; 86235

== ENCOUNTER → 2025-01-17 | Outpatient (CLI) | payer OTHER, SELFPAY | END | disposition home or self-care (01) | LOC: SL 19:56 | PROVIDERS: PCP Internal Medicine; Referring Provider Psychiatry & Neurology Neurology; Visit Provider Psychiatry & Neurology Neurology | DX: G47.10 Hypersomnia, unspecified (principal); G47.52 REM sleep behavior disorder | CPT/HCPCS: 95810 ==

== ENCOUNTER → 2025-01-20 | Outpatient (CLI) | payer OTHER, SELFPAY | END | disposition home or self-care (01) | PROVIDERS: PCP Internal Medicine; Referring Provider Psychiatry & Neurology Neurology; Visit Provider Psychiatry & Neurology Neurology | DX: F41.9 Anxiety disorder, unspecified (principal); R53.83 Other fatigue; S09.90XA Unspecified injury of head, initial encounter | CPT/HCPCS: 95819 ==